=== PATIENT | male | born 1960 | race Caucasian/White ===

== ENCOUNTER 2024-06-17 18:45 | Inpatient (IN) | payer MEDICARE, SELFPAY ==
[2024-06-17] VITALS (23 sets, daily range): BP systolic 91–129; BP diastolic 65–83; BMI 15.1; BMI 14.7
[2024-06-17 15:20] LABS: ALT (SGPT) 38 U/L (0-50); AST (SGOT) 42 U/L (17-59); Albumin 2.5 g/dl (3.5-5.0); Alkaline Phosphatase 90 U/L (38-126); Blood Urea Nitrogen 9 mg/dl (9-20); Calcium 7.5 mg/dl (8.4-10.2); Carbon Dioxide 30 mmol/L (22-30); Chloride 87 mmol/L (98-107); Estimated Creatinine Clearance 93 ml/min; Glucose 99 mg/dl (70-99); Potassium 3.6 mmol/L (3.5-5.1); Sodium 121 mmol/L (135-145); Total Bilirubin 0.3 mg/dl (0.2-1.3); Total Protein 4.7 g/dl (6.3-8.2); eGFR > 60.00
--- NOTE | 2024-06-17 15:33 | ED.GENMED ---
History of Present Illness
General
Chief Complaint: Blood Pressure Problem
Time Seen by Provider: 06/17/24 15:09
History of Present Illness
History of Present Illness:
63-year-old male presents to the emergency department for evaluation of lightheadedness and low blood pressure with exertion. He comes from [facility]. He states he was admitted to [facility] at some point within the
past month or 2 for 'seizures' as well as for intestinal bleeding. Records that arrived from [facility] suggest the patient has a history of a stroke and is on dual antiplatelets at this time. He does report melanotic stool for an uncertain
timeframe. Denies any abdominal pain or chest pain at this time.
Review of Systems
Review of Systems
Allergies reviewed?: Yes
All Other Systems: ROS reviewed and negative except as documented in HPI and ROS
Phy Exam
Physical Exam
Physical Exam:
GEN: Thin and frail, chronically ill-appearing, generally pale
Eyes: PERRLA, EOMs intact, no scleral icterus
HENT: NCAT, oral mucosa dry
Lungs: CTAB, no wheezes, rales, rhonchi, normal chest wall excursion
Cardiac: RRR, no M/R/G, no peripheral edema. Radial pulses 2+ bilat
Abdomen: S, NT, ND, NABS, no masses or hepatosplenomegaly
Neuro: AO x 3, no focal deficits to BUE/BLE
MSK: No gross deformity or ecchymosis. No edema. No digital clubbing
Skin: No rashes, petechiae. Generally pale
Psych: Calm, cooperative, proper hygiene
Course
Orders/Labs/Results
Orders:
Orders
06/17/24 14:33
EKG [Electrocardiogram (*1)] Urgent
Reason for Study: Other
Other Reason for Exam: hypotension
EKG- Treatment ONCE
06/17/24 14:50
Alcohol Urgent
Comprehensive Metabolic Panel Urgent
06/17/24 15:24
Complete Blood Count/With Diff Urgent
06/17/24 15:32
Add On- LAB Urgent
Tests Added?: alcohol
Osmolality, Random Urine Urgent
Urine Sodium Urgent
06/17/24 16:36
Type And Crossmatch [Type+Screen] Stat
Serum Osmolality Urgent
06/17/24 16:41
Blood Bank Products [* Blood Bank Products] Urgent
Blood Bank Products: *Packed RBC Leuko(PRBC's)
Quantity: 2
Transfuse Today: Yes
Reason: Bleeding
Pantoprazole [Protonix IV] 40 mg IV NOW STA
06/17/24 17:16
ABO2 Routine
BBK Wristband Number:
Associate notified that ABO2 has been ordered: [id number]
Date: 06/17/24
Time: 16:48
Chief Estimator ID: [id number]
06/17/24 17:49
Pantoprazole [Protonix IV] 40 mg IV NOW STA
06/17/24 17:54
0.9% Sodium Chloride [Nss (Preservative Free)] 10 ml IV NOW STA
06/17/24 17:57
Admit/Transfer Patient As Directed
Co-Sign Provider:
Level of Care: Inpatient admission
Assign to:: IMU- Intermediate Care
Physician / Group: sam
Diagnosis: GI blled
Reason for Hospitalization: Gi bleed
Expected length of stay greater than two midnights?: Yes
ELOS- Estimated Length of Stay in days: 3
I certify the patient meets the requirements for IP care: Yes
PRN Pain Medication Management As Directed
May give lesser potent ordered pain med per pt: Yes
preference::
Protocol:: Medication orders for pain may be administered in a
manner that supports deferring to patient preference
when the pt is:
- Requesting an ordered lesser potent pain medication.
Least to most potent pain medications are defined
as: acetaminophen < NSAID < tramadol < opioids
(morphine, oxycodone, hydromorphone).
- Requesting a lesser dose of the same medication IF
ORDERED.
- Requesting a less intrusive route of administration
if both routes are prescribed by the provider (PO <
IV).
06/17/24 17:58
Code Status As Directed
Resuscitation Status: Full Code
06/17/24 18:00
0.9% Sodium Chloride 1000 ml [Nss] 1,000 ml IV 60 mls/hr
Pantoprazole 80 mg/100 ml Nss [Protonix] 80 mg in 100 ml IV Q10H
06/17/24 22:00
Sodium Q4H
06/18/24 02:00
Sodium Q4H
06/18/24 06:00
Sodium Q4H
06/18/24 10:00
Sodium Q4H
06/18/24 14:00
Sodium Q4H
06/18/24 18:00
Sodium Q4H
Abnormal Lab Results
06/17/24 06/17/24 06/17/24
14:50 15:24 16:36
RBC 1.34 L 10^6/uL
(4.70-6.10)
Hgb 4.6 L* g/dL
(13.0-18.0)
Hct 13.2 L* %
(39.0-52.0)
MCV 98.5 H fL
(80.0-94.0)
MCH 34.3 H pg
(27.0-31.0)
RDW 17.3 H %
(11.5-14.5)
Plt Count 416 H 10^3/uL
(130-400)
Absolute Neuts (auto) 7.1 H 10^3/uL
(1.4-6.5)
Absolute Lymphs (auto) 1.1 L 10^3/uL
(1.2-3.4)
Neutrophils % 79.9 H %
(42.2-75.2)
Lymphocytes % 12.9 L %
(20.5-51.1)
Sodium 121 L mmol/L
(135-145)
Chloride 87 L mmol/L
(98-107)
Creatinine 0.6 L mg/dL
(0.7-1.3)
Serum Osmolality 258 L mOsm/kg
(275-300)
Calcium 7.5 L mg/dl
(8.4-10.2)
Total Protein 4.7 L g/dl
(6.3-8.2)
Albumin 2.5 L g/dl
(3.5-5.0)
Crossmatch IS Only See Detail
06/17/24 15:24
Vital Signs
Initial and Last Documented VS:
Initial Vital Signs
Temp Pulse Resp BP Pulse Ox
97.3 F 83 18 91/68 99
06/17/24 14:28 06/17/24 14:28 06/17/24 14:28 06/17/24 14:28 06/17/24 14:28
Last Documented Vital Signs
Temp Pulse Resp BP Pulse Ox
97.7 F 70 18 113/68 97
06/17/24 18:13 06/17/24 18:31 06/17/24 18:31 06/17/24 18:31 06/17/24 18:31
MDM/Problems Addressed
MDM/Problems Addressed:
Patient's GI bleed is most likely an upper GI bleed in the setting of dual antiplatelet use. For is unable to obtain records during ED evaluation from his recent admission to [facility]. He is clearly hypovolemic and thus we will start gentle IV
fluids and PRBC transfusion. Will admit to the hospitalist service for further workup and management
*Critical Care Note
Total Time (30-74mins, 75-104mins- exclusive of procedures): 40 minutes
comment:
Critical care time: 40 minutes
Critical care time was exclusive of: Separately billable procedures, treating other patients, and teaching time
Critical care was necessary to treat or prevent imminent or life-threatening deterioration of the following conditions: Acute blood loss anemia
Critical care time spent personally by me on the following activities:
[x] Review of old charts
[x] Obtaining history from patient or surrogate
[x] Ordering and review of the laboratory studies
[x] Ordering and review of radiographic studies
[x] Ordering and performing treatments and interventions
[x] Patient patient's response to treatment
[x] Development of treatment plan with patient or surrogate
ED Attending Note
-
Portions of this chart may have been created with voice recognition software.� Occasional wrong word or��sound alike� substitutions may have occurred due to the inherent limitations of voice recognition software.
Discharge Plan
Departure
Patient Disposition: Admit
Date of Disposition: 06/17/24
Time of Disposition: 17:28
Admit to: Med/Surg
Presentation/result/management discussed w/ accepting MD/DO: Hospitalist
Discharge Problem:
Acute upper gastrointestinal bleeding, Acute hyponatremia
Prescriptions:
No Action
atorvastatin 40 mg Tablet
40 mg PO HS
acetaminophen [Tylenol] 325 mg Tablet
650 mg PO Q4HPRN PRN (Reason: mild pain/fever)
ondansetron HCl [Zofran] 4 mg Tablet
4 mg PO Q8HPRN PRN (Reason: nausea)
thiamine HCl (vitamin B1) 100 mg Tablet
100 mg PO DAILY
clopidogrel 75 mg Tablet
75 mg PO DAILY
amlodipine 5 mg Tablet
5 mg PO DAILY
Rx Instructions:
hold if SBP<100
magnesium hydroxide [Milk of Magnesia] 400 mg/5 mL Suspension
30 ml PO [id number] PRN (Reason: no bm for 3 days)
bisacodyl [Dulcolax (bisacodyl)] 10 mg Suppository
10 mg HI DAILYPRN PRN (Reason: if mom ineffective after 24 hours)
oseltamivir [Tamiflu] 75 mg Capsule
75 mg PO HS
Patient Comments:
06/17/24: to take for 14 days, starting 06/14/24
Fleet Enema 19-7 gram/118 mL Enema
118 ml HI DAILYPRN PRN (Reason: if bisacodyl ineffective after 24 hours)
aspirin 81 mg Tablet,Chewable
81 mg PO DAILY
folic acid 1 mg Tablet
1 mg PO DAILY
lorazepam 1 mg Tablet
1 mg PO Q8HPRN PRN (Reason: seizures)
lacosamide 200 mg Tablet
200 mg PO BID
Referrals:
Cody Lopez MD [Family Provider] -
Interventions
Interventions:
*Risk Screen - Suicide Last Done: 06/17/24 14:28
*General Assessment Last Done: 06/17/24 14:28
*Neglect/Abuse Screening Last Done: 06/17/24 14:28
ED- Cardiac Assessment Last Done: 06/17/24 18:01
ED- Neurological Assessment Last Done: 06/17/24 18:01
ED- Pulmonary Assessment Last Done: 06/17/24 18:01
Discharge Date and Time
Print Language: SENEGALESE
[2024-06-17 15:54] LABS: Alcohol None Detected
[2024-06-17 16:28] LABS: % Basophils 0.1 % (0-2); % Immature Granulocytes 0.3 % (0-0.5); % Lymphocytes 12.9 % (20.5-51.1); % Monocytes 6.8 % (1.7-9.3); % Neutrophils 79.9 % (42.2-75.2); Absolute Lymphocytes 1.1 10^3/uL (1.2-3.4); Absolute Monocytes 0.6 10^3/uL (0.1-0.6); Absolute Neutrophils 7.1 10^3/uL (1.4-6.5); Hematocrit 13.2 % (39.0-52.0); Hemoglobin 4.6 g/dL (13.0-18.0); Mean Corp Hgb Conc. 34.8 g/dL (33.0-37.0); Mean Corpuscular Hgb 34.3 pg (27.0-31.0); Mean Corpuscular Volume 98.5 fL (80.0-94.0); Nucleated Red Blood Cells % 0.3 % (-); Platelet Count 416 10^3/uL (130-400); Red Blood Cell Count 1.34 10^6/uL (4.70-6.10); Red Cell Dist. Width 17.3 % (11.5-14.5); White Blood Cell Count 8.9 10^3/uL (4.8-10.8)
[2024-06-17] MEDS: PROTONIX IV 40 MG IV ×2 (16:47→18:27)
[2024-06-17 16:54] LABS: Osmolality Serum 258 mOsm/kg (275-300)
--- NOTE | 2024-06-17 17:33 | HPS.HSE ---
Family Physician
-
Family Physician: Cody Lopez
Chief Complaint
-
dizzy
nausea
dark diarrhea stool
History of Present Illness
63-year-old male with past medical history for heart failure, CVA, hypertension, hyperlipidemia, anxiety, COPD, GERD, presents to the emergency department for evaluation of lightheadedness and low blood pressure. Patient stated dizzy every time he
gets up. he comes from [facility]. He states he was admitted to [facility] for bleeding ulcer which was cauterized. Patient denied black/tarry diarrhea for past few days. He gets nauseous after each meal. Denied
any headache, blurry vision, numbness, tingling. Patient denied any fever, chills, chest pain, short of breath. Patient denied any abdominal pain. Denied dysuria hematuria.
Upon arrival his hemoglobin was in 4.6. 2 units of PRBCs ordered in the ER. Admitting for further management
Medical History
Past Medical History
Past Medical History: Reports Other
Additional Past Medical History:
Heart failure
CVA
Hypertension
Hyperlipidemia
Anxiety
COPD
GERD
Past Surgical History: Reports Other
Additional Past Surgical History:
Cardiac stent
Bleeding also cauterized
Social History
Tobacco: Smoker (4-5 ciggrettes daily)
Alcohol: Former
Drug: Former User (MJ use)
Family History
Family History: Not pertinent
Allergies / Home Medications
Allergies reflects when Allergies were last updated in [employer].
Home Medications with original date entered in [employer]
Allergy/Medication List:
Allergies
Allergy/AdvReac Type Severity Reaction Status Date / Time
No Known Allergies Allergy Verified 06/17/24 15:08
Home Medications
acetaminophen 325 mg tablet (Tylenol) 650 mg PO Q4HPRN PRN mild pain/fever 06/17/24
amlodipine 5 mg tablet 5 mg PO DAILY 06/17/24
aspirin 81 mg chewable tablet 81 mg PO DAILY 06/17/24
atorvastatin 40 mg tablet 40 mg PO HS 06/17/24
bisacodyl 10 mg rectal suppository (Dulcolax (bisacodyl)) 10 mg ME DAILYPRN PRN if mom ineffective after 24 hours 06/17/24
clopidogrel 75 mg tablet 75 mg PO DAILY 06/17/24
folic acid 1 mg tablet 1 mg PO DAILY 06/17/24
lacosamide 200 mg tablet 200 mg PO BID 06/17/24
lorazepam 1 mg tablet 1 mg PO Q8HPRN PRN seizures 06/17/24
magnesium hydroxide 400 mg/5 mL oral suspension (Milk of Magnesia) 30 ml PO [id number] PRN no bm for 3 days 06/17/24
ondansetron HCl 4 mg tablet 4 mg PO Q8HPRN PRN nausea 06/17/24
oseltamivir 75 mg capsule (Tamiflu) 75 mg PO HS 06/17/24
sodium phosphates 19 gram-7 gram/118 mL enema (Fleet Enema) 118 ml ME DAILYPRN PRN if bisacodyl ineffective after 24 hours 06/17/24
thiamine HCl (vitamin B1) 100 mg tablet 100 mg PO DAILY 06/17/24
Review of Systems
-
Constitutional: Reports No Symptoms
EENT: Reports No Symptoms
Respiratory: Reports No Symptoms
Cardiac: Reports No Symptoms
Abdomen/GI: Reports Nausea, Diarrhea and Black Stools
: Reports No Symptoms
Musculoskeletal: Reports No Symptoms
Skin: Reports No Symptoms
Neurological: Reports No Symptoms
Endocrine: Reports No Symptoms
Hematologic/Lymphatic: Reports No Symptoms
Psych: Reports No Symptoms
Physical Exam
Vital Signs
Vital Signs
Temp Pulse Resp BP Pulse Ox
97.4 F 68 16 117/75 98
06/17/24 15:08 06/17/24 17:30 06/17/24 17:30 06/17/24 17:30 06/17/24 17:32
Physical Exam
General: Well Developed, Well Nourished and No Apparent Distress
HEENT: NormoCephalic, Moist mucous membranes and Atraumatic
Respiratory: Clear
Cardiac: S1/S2 and Regular Rhythm; No Murmur or Rub
GI: Soft, Non Tender, Non Distended and Normal Bowel Sounds; No Organomegaly
Rectal: Deferred by Provider
Musculoskeletal: No Clubbing, No Cyanosis and No Edema
Skin: No Rash
Neuro: AO x 3 and Nonfocal/grossly intact
Psych: Calm
Laboratory Results
-
06/17/24 15:24
06/17/24 14:50
Laboratory Results
Total Bilirubin 0.3 mg/dl (0.2-1.3) 06/17/24 14:50
AST 42 U/L (17-59) 06/17/24 14:50
ALT 38 U/L (0-50) 06/17/24 14:50
Alkaline Phosphatase 90 U/L (38-126) 06/17/24 14:50
Data Reviewed
-
Lab Data: Labs Reviewed by me
Impression/Plan
-
# Acute blood loss anemia likely from upper GI bleed
-Hemoglobin 4.6
-Patient is ordered 2 units of blood
-IV PPI
-Trend hemoglobin
-Keep patient clears
-GI consult
# Hyponatremia likely hypovolemic
-Sodium 121
-Hydrated with fluids
-Obtain urine sodium, osmolality and serum osmolality
-BMP every 4 hours
# Essential hypertension
Norvasc continued with hold parameters
#Hyperlipidemia
-Statin continued
# History of CVA with no residual
-Hold Plavix and aspirin
# History of CAD with cardiac stents
# History of seizure
Lacosamide continued
#DVT prophylaxis
-scd
#CODE status
-full code
--- NOTE | 2024-06-17 17:40 | W.PN.UPDATE ---
Update Note
Progress Note Update
This is an addendum to H&P written by COTTON BREEDER Diane Navarro
I saw and examined the patient.
The COTTON BREEDER's note was reviewed and I agree with the note.
Comment:
Mr. Tay Zamudio is a 63 yo man with hx CVA on Asa/Plavix, recent admission to [place] for seizures and GIB (per patient, requested records) [facility] with lightheadedness and low blood pressure with exertion.
Triage VS: T 97.3, P 83, RR 18, BP 91/68, SpO2 99%
On exam patient is pale appearing, in no acute distress, conversant, poor nutrition, abdomen soft and non-tender, chest clear, no LE swelling
LABS: WBC 8.9, Hg 4.6, PLT 416, Na 121, K+ 3.6, Cl 87, Cr 0.6, Serum Osmolality 258, T. Bili 0.3, AST 42, ALT 38, Alk Phos 90
EKG: NSR @ 75
Melena
Acute Blood Loss Anemia
-need to obtain outpatient records from [place] - requested by the ER
-receiving 2 units PRBC here, trend Hg and transfuse to keep Hg > 7
-hold HUMAN RESOURCES TALENT MANAGER Asa/Plavix given life threatening anemia
-IV Protonix gtt
-trend Hg
-GI consult
-clear liquid diet
Hyponatremia
-in setting of melena and dehydration
-F/U urine studies
-NS @ 70
-trend Na q 4 hours. Goal Na is 129-131 tomorrow evening
-Nephrology consult
CAD with Hx PCI
-hold aspirin and Plavix in setting of life threatening anemia. patient reports that his PCI was over one year ago - will look at outpatient records to confirm
Recent CVA
-hold aspirin and Plavix as above
-HUMAN RESOURCES TALENT MANAGER statin
Seizures
-HUMAN RESOURCES TALENT MANAGER Lacosamide, Ativan PRN
Essential HTN
-patient was hypotensive on arrival
-hold HUMAN RESOURCES TALENT MANAGER Amlodipine
Remainder of plan per COTTON BREEDER note
Time on patient care spent 76 minutes
[2024-06-17] MEDS: NSS 1000 IV (18:10)
[2024-06-17] MEDS: NSS (PRESERVATIVE FREE) 10 ML IV (18:27)
[2024-06-17] MEDS: PROTONIX 100 IV (18:43)
--- NOTE | 2024-06-17 19:59 | PTCARENOTE ---
Received pt from ED via stretcher. PRBCs 1 unit infusing in right upper arm. Completed at 19:50 with no reactions. AAOx3. VSS at this time. Pt remains on bed rest. Call floyd in reach.
[2024-06-17] MEDS: VIMPAT 200 MG PO (20:49)
[2024-06-17] MEDS: LIPITOR 40 MG PO (20:49)
[2024-06-17 23:07] LABS: Sodium 120 mmol/L (135-145)
[2024-06-17 23:09] LABS: Osmolality Urine 523 mOsm/kg (300-900)
[2024-06-17 23:24] LABS: Urine Sodium 49 mmol/L (30-90)
[2024-06-17] MEDS: SODIUM CHLORIDE 3% 250 IV (23:25)
[2024-06-18] VITALS (12 sets, daily range): BP systolic 100–137; BP diastolic 64–90; BMI 14.7
[2024-06-18 01:16] LABS: Hematocrit 22.2 % (39.0-52.0); Hemoglobin 7.5 g/dL (13.0-18.0)
[2024-06-18 03:15] LABS: Sodium 124 mmol/L (135-145)
[2024-06-18] MEDS: PROTONIX 100 IV (04:30)
[2024-06-18 06:43] LABS: Hematocrit 22.3 % (39.0-52.0); Hemoglobin 7.4 g/dL (13.0-18.0); Mean Corp Hgb Conc. 33.2 g/dL (33.0-37.0); Mean Corpuscular Hgb 31.8 pg (27.0-31.0); Mean Corpuscular Volume 95.7 fL (80.0-94.0); Mean Platelet Volume 9.3 fL (7.4-10.4); Platelet Count 313 10^3/uL (130-400); Red Blood Cell Count 2.33 10^6/uL (4.70-6.10); Red Cell Dist. Width 16.7 % (11.5-14.5); White Blood Cell Count 7.9 10^3/uL (4.8-10.8)
[2024-06-18 06:52] LABS: Blood Urea Nitrogen 11 mg/dl (9-20); Calcium 7.5 mg/dl (8.4-10.2); Carbon Dioxide 32 mmol/L (22-30); Chloride 92 mmol/L (98-107); Estimated Creatinine Clearance 90 ml/min; Glucose 85 mg/dl (70-99); Potassium 3.5 mmol/L (3.5-5.1); Sodium 125 mmol/L (135-145); eGFR > 60.00
--- NOTE | 2024-06-18 07:21 | CON.GI ---
Addendum entered and electronically signed by Kathryn Zhang MD 06/18/24 15:46:
I saw and examined the patient.
The ROOFER APPRENTICE or PA's note was reviewed and I agree with the note.
Comment: 63-year-old male with history of CVA on aspirin/ Plavix, history of GI bleed unclear etiology (?ulcer) at [facility] several months ago currently off PPI, alcohol abuse, seizure disorder presenting from rehab with hypotension and
lightheadedness, in the ER he was noted to have hemoglobin of 4.6 with iron deficiency indices, heme positive stool and GI consult was called in. He was also noted to be hyponatremic.
Patient denies any abdominal pain but episodes of nausea with vomiting, ? Blackish loose stool in the last week or so. Denies any trouble swallowing. Denies any NSAID use but does report weight loss but cannot quantify.
Reports history of daily alcohol use, abdominal ultrasound unremarkable without any evidence of fatty liver. Denies previous colonoscopy, family history of colon cancer in brother.
-Iron deficiency anemia and heme positive stool, received 2 units of packed red blood cell transfusion and hemoglobin currently at 7.4.
Rule out ulcer disease, esophagitis, AVMs, colon polyps versus other
No further bleeding since admission. Currently tolerating clear liquid diet.
Continue Protonix 40 mg IV twice daily.
Await records from [facility]
Plavix on hold.
Will need upper endoscopy after Plavix washout,06/21/24 and if negative, colonoscopy.
-Hypoalbuminemia noted without any concern for cirrhosis on ultrasound
Will follow
Addendum entered and electronically signed by BLUE Sabillon 06/18/24 09:32:
cont to correct Na per medical team down to 120 now 125 today
Original Note:
Consultation
-
Date/Time Consultation Requested: 06/17/24 1900
Date/Time Consultation Performed: 06/18/24 0900
Requesting Provider: BLUE Ruiz
Performing Provider: BLUE Hunter, Kathryn Zhang MD
Reason for Consultation: GI bleed
Medical History
Chief Complaint / HPI
History of Present Illness:
Pt is a 63yo with hx CVA on ASA and plavix, CAD with prior stent, CHF, GERD, COPD, ETOH abuse, CVA, seizure disorder, HTN, hyperlipidemia, anxiety with admission with lightheadedness and hypotension. He reported recent ulcer disease with
cauterization several months ago. Pt was off PPI prior to admission. On arrival hbg was 4.6, Na 121 with heme + stool in ER. No prior colonoscopy and family hx brother with colon CA. Pt currently admits to nausea and vomiting occasional black
material and diarrhea. He was unsure about stool color as did not look at stools. He otherwise denies dysphagia, GERD and constipation. Pt also admits to some wt loss over last few weeks.
Past Medical History
Past Medical History: CHF, COPD, CVA, GERD, HTN, Hypercholesterolemia, Seizures, Psychiatric (anxiety ) and Other (recent ulcer disease with cauterization, ETOH abuse )
Past Surgical History: Cardiac (stent )
Social History
Tobacco: Smoker
Alcohol: Daily (prior to SNF admission 2-3 drinks )
Drug: Marijuana (occasional )
Living: Assisted Living
Family History
Family History: Other (brother with colon CA)
Allergies / Home Medications
Allergy/AdvReac Type Severity Reaction Status Date / Time
No Known Allergies Allergy Verified 06/17/24 15:08
�Medication �Instructions �Recorded
acetaminophen 325 mg tablet 650 mg PO Q4HPRN PRN mild 06/17/24
(Tylenol) pain/fever
amlodipine 5 mg tablet 5 mg PO DAILY 06/17/24
aspirin 81 mg chewable tablet 81 mg PO DAILY 06/17/24
atorvastatin 40 mg tablet 40 mg PO HS 06/17/24
bisacodyl 10 mg rectal suppository 10 mg PA DAILYPRN PRN if mom 06/17/24
(Dulcolax (bisacodyl)) ineffective after 24 hours
clopidogrel 75 mg tablet 75 mg PO DAILY 06/17/24
folic acid 1 mg tablet 1 mg PO DAILY 06/17/24
lacosamide 200 mg tablet 200 mg PO BID 06/17/24
lorazepam 1 mg tablet 1 mg PO Q8HPRN PRN seizures 06/17/24
magnesium hydroxide 400 mg/5 mL 30 ml PO [id number] PRN no bm for 3 06/17/24
oral suspension (Milk of Magnesia) days
ondansetron HCl 4 mg tablet 4 mg PO Q8HPRN PRN nausea 06/17/24
oseltamivir 75 mg capsule (Tamiflu) 75 mg PO HS 06/17/24
sodium phosphates 19 gram-7 118 ml PA DAILYPRN PRN if 06/17/24
gram/118 mL enema (Fleet Enema) bisacodyl ineffective after 24
hours
thiamine HCl (vitamin B1) 100 mg 100 mg PO DAILY 06/17/24
tablet
Review of Systems
-
History Source: Patient
Constitutional: Reports Weight Loss and Chills
EENT: Reports No Symptoms
Respiratory: Reports No Symptoms
Cardiac: Reports No Symptoms
Abdomen/GI: Reports Nausea, Vomiting (dark emesis ) and Diarrhea
: Reports No Symptoms
Musculoskeletal: Reports No Symptoms
Skin: Reports No Symptoms
Neurological: Reports Dizzy and Weakness
Endocrine: Reports No Symptoms
Hematologic/Lymphatic: Reports Bleeding
Vital Signs
Temp Pulse Resp BP Pulse Ox
97.6 F 75 19 105/74 95
06/18/24 02:46 06/18/24 06:10 06/18/24 06:10 06/18/24 06:10 06/18/24 06:10
Physical Exam
Exam
General: Well Developed, Well Nourished and No Apparent Distress
HEENT: Normocephalic and Anicteric
Respiratory: Clear
Cardiac: Regular Rhythm
GI: Soft, Non Tender and Non Distended
Rectal: Hem Positive (per ER)
Musculoskeletal: No Clubbing
Skin: Warm and Dry
Neuro: Awake, Alert and AO x 3
Psych: Calm
Results
WBC 7.9 10^3/uL (4.8-10.8) 06/18/24 06:15
Hgb 7.4 g/dL (13.0-18.0) L 06/18/24 06:15
Hct 22.3 % (39.0-52.0) L 06/18/24 06:15
MCV 95.7 fL (80.0-94.0) H 06/18/24 06:15
Plt Count 313 10^3/uL (130-400) D 06/18/24 06:15
Absolute Neuts (auto) 7.1 10^3/uL (1.4-6.5) H 06/17/24 15:24
Sodium 125 mmol/L (135-145) L 06/18/24 06:15
Potassium 3.5 mmol/L (3.5-5.1) 06/18/24 06:15
Chloride 92 mmol/L (98-107) L 06/18/24 06:15
Carbon Dioxide 32 mmol/L (22-30) H 06/18/24 06:15
BUN 11 mg/dl (9-20) 06/18/24 06:15
Creatinine 0.6 mg/dL (0.7-1.3) L 06/18/24 06:15
Calcium 7.5 mg/dl (8.4-10.2) L 06/18/24 06:15
Total Bilirubin 0.3 mg/dl (0.2-1.3) 06/17/24 14:50
AST 42 U/L (17-59) 06/17/24 14:50
ALT 38 U/L (0-50) 06/17/24 14:50
Alkaline Phosphatase 90 U/L (38-126) 06/17/24 14:50
Diagnostic Image Results:
Prior GI Procedures:
EGD: recent [facility] with cauterization of ulcer
Colonoscopy: none
Assessment / Plan
-
Pt is a 63yo with hx CVA on ASA and plavix, CAD with prior stent, CHF, GERD, COPD, HTN, hyperlipidemia,ETOH abuse, CVA, seizure disorder, anxiety with admission with lightheadedness and hypotension. He reported recent ulcer disease with
cauterization. On arrival hbg was 4.6,with normal BUN 9, Na 121. Stool noted heme + in ER.
-anemia
-intermittent vomiting dark emesis
-recent PUD disease with treatment at [facility]
-CAD/stent on ASA and Plavix prior to admission
-ETOH abuse on thiamine and folate prior to admission
-hyponatremia
-hypoalbumenia
other med problems:
-CVA
-seizure disorder
-CHF
-GERD
-COPD
-hyperlipidemia
-anxiety
-brother with hx colon CA
PLAN:
etiology of anemia related to continued bleeding with hx of ulcer disease with ASA and Plavix use vs ectasia, portal gastropathy, esophagititis vs other
per home med list pt was not on PPI therapy
agree with transfusion hbg up to 7.4 today
PPI gtt will transition to BID with no stool overnight
await records of prior EGD -- review with staff to try to get today
cont Plavix hold-- if needed can cont ASA
trend hbg and stool record
remains on thiamine and folate
will try to add iron studies/ b12/folate to ER labs if able to see if benefit from IV iron
check US abdomen to eval for underlying liver disease with ETOH use and hypoalbuminemia
t/c eventual EGD then colon with no prior screening and family hx colon CA - brother -- will review timing with Dr. Zhang
I left message for daughter to review
-
-
-
Thank you for consultation and allowing me to participate in the patient's care. Please call the transportation consultant GI physician during the after hours with any questions or concerns.
--- NOTE | 2024-06-18 07:58 | W.PN.HOSP.TC ---
Today's Communication/Plan
-
see plan
Assessment / Plan
Assessment / Plan
Mr. Tay Zamudio is a 63 yo man with hx CVA on Asa/Plavix, recent admission to [facility] for seizures and GIB (per patient, requested records) [facility] and low blood pressure with exertion.
Melena
Acute Blood Loss Anemia
-need to obtain outpatient records from [facility] - requested by the ER
-s/p 2 units with appropriate rise
-hold BUILDING CONSTRUCTION SUPERVISOR Asa/Plavix given life threatening anemia - can likely resume aspirin in the next 1-2 days after discuss with GI
-IV Protonix gtt
-trend Hg
-GI consult
-clear liquid diet
Hyponatremia
-in setting of melena and dehydration, may be component of SIADH based on urine studies
-required hypertonic saline overnight as Na decreased to 120 post blood and IVF
-Nephrology consult appreciated, follow up further recs
CAD with Hx PCI
-hold aspirin and Plavix in setting of life threatening anemia. patient reports that his PCI was over one year ago - will look at outpatient records to confirm
Recent CVA
-hold aspirin and Plavix as above
-BUILDING CONSTRUCTION SUPERVISOR statin
Seizures
-BUILDING CONSTRUCTION SUPERVISOR Lacosamide
Essential HTN
-patient was hypotensive on arrival
-hold BUILDING CONSTRUCTION SUPERVISOR Amlodipine
DVT PPx SCD
FULL CODE
51 minutes spent on patient care
Anticipated Discharge: > 48 hours
Subjective/Interval History
-
Date of Service: June 18, 2024
no bowel movements overnight
resting comfortably, denies pain
no chest pain or shortness of breath
Objective Data
-
Labs:
Laboratory Results
06/17/24 06/18/24 06/18/24
22:47 00:30 00:48
WBC
Hgb 7.5 L D
Hct 22.2 L
Plt Count
Sodium 120 L Cancelled
Potassium
Chloride
Carbon Dioxide
BUN
Creatinine
Glucose
Calcium
06/18/24 06/18/24 06/18/24
02:43 06:00 06:15
WBC 7.9
Hgb Cancelled 7.4 L
Hct Cancelled 22.3 L
Plt Count 313 D
Sodium 124 L 125 L
Potassium 3.5
Chloride 92 L
Carbon Dioxide 32 H
BUN 11
Creatinine 0.6 L
Glucose 85
Calcium 7.5 L
06/18/24 06/18/24 06/18/24
10:00 12:00 14:00
WBC
Hgb Pending
Hct Pending
Plt Count
Sodium Pending Pending
Potassium
Chloride
Carbon Dioxide
BUN
Creatinine
Glucose
Calcium
06/18/24
18:00
WBC
Hgb
Hct
Plt Count
Sodium Pending
Potassium
Chloride
Carbon Dioxide
BUN
Creatinine
Glucose
Calcium
Vital Signs:
Vital Signs
Temp Pulse Resp BP Pulse Ox
97.6 F 75 19 105/74 95
06/18/24 02:46 06/18/24 06:10 06/18/24 06:10 06/18/24 06:10 06/18/24 06:10
I&O
06/17/24 06/18/24 06/19/24
06:59 06:59 06:59
Intake Total 500 / 500
Output Total 125 / 125
Balance 375 / 375
Review of Systems
-
History Source: Patient
All other systems: Reviewed and negative
Physical Exam
-
General: No Apparent Distress and Comfortable
HEENT: PERRLA
Respiratory: Clear to Auscultation; Negative Wheezes
Cardiac: Regular Rhythm and S1/S2
GI: Soft and Nontender
Musculoskeletal: No Edema
Skin: Warm and Dry; Negative Rash
Neuro: AO x 3
Psych: Calm
Data Reviewed
-
Diagnostic Radiology: Report Reviewed by me
Labs: Labs Reviewed by me
[2024-06-18] MEDS: FOLVITE 1 MG PO (09:26)
[2024-06-18] MEDS: VIMPAT 200 MG PO ×2 (09:26→20:19)
[2024-06-18] MEDS: VITAMIN B1 100 MG PO (09:26)
[2024-06-18 10:42] LABS: Sodium 127 mmol/L (135-145)
[2024-06-18 10:59] LABS: Iron 32 ug/dl (49-181)
[2024-06-18 11:08] LABS: Percent Saturation 12 % (20-50); Total Iron Binding Capacity 262 ug/dl (261-462)
--- NOTE | 2024-06-18 12:19 | W.CON.NEPH ---
Consultation
-
Date/Time Consultation Requested: 06/17/24 191
Date/Time Consultation Performed: 06/18/24 1120
Requesting Provider: Margaret Bryan
Performing Provider: Rosibel Bonds
Reason for Consultation: hyponatremia
Medical History
-
Chief Complaint: dizzy, radha
History of Present Illness:
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 point
for evaluation of lightheadedness and low blood pressure on 06/17. He reportedly was admitted to [facility] for bleeding ulcer which was cauterized months ago. Patient did not pay attention to stools lately. His hb on admit was
at 4.6, sodium 121, SBP in 90s. He noted to have radha in ER. Has prior h/o hyponatremia is not clear. He received 2units of PRBC last night and also 3%saline. His hb better at 7.4 and sodium upto 127. 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
abd pian. No CP or sob. No fever. No dysuria.. Nephrology consulted for hyponatremia management.
Past Medical History
Heart failure
CVA
Hypertension
Hyperlipidemia
Anxiety
COPD
GERD
SZDO
Past Surgical History: Other (Cardiac stent GIBleeding also cauterized)
Social History
Tobacco: Smoker (4-5 daily)
Alcohol: Former (dailyETOH until recent rehab stay )
Drug: Marijuana (former)
Living: Assisted Living
Family History
Family History: Not Pertinent
Allergies / Home Medications
Allergy/AdvReac Type Severity Reaction Status Date / Time
No Known Allergies Allergy Verified 06/17/24 15:08
�Medication �Instructions �Recorded �Confirmed �Type
acetaminophen 325 mg tablet 650 mg PO Q4HPRN PRN mild 06/17/24 06/17/24 History
(Tylenol) pain/fever
amlodipine 5 mg tablet 5 mg PO DAILY Blood Pressure 06/17/24 06/17/24 History
aspirin 81 mg chewable tablet 81 mg PO DAILY Blood Clot 06/17/24 06/17/24 History
Prevention/Tx
atorvastatin 40 mg tablet 40 mg PO HS High Cholesterol 06/17/24 06/17/24 History
bisacodyl 10 mg rectal suppository 10 mg VA DAILYPRN PRN if mom 06/17/24 06/17/24 History
(Dulcolax (bisacodyl)) ineffective after 24 hours
clopidogrel 75 mg tablet 75 mg PO DAILY Blood Clot 06/17/24 06/17/24 History
Prevention/Tx
folic acid 1 mg tablet 1 mg PO DAILY Supplement 06/17/24 06/17/24 History
lacosamide 200 mg tablet 200 mg PO BID Seizures 06/17/24 06/17/24 History
lorazepam 1 mg tablet 1 mg PO Q8HPRN PRN seizures 06/17/24 06/17/24 History
magnesium hydroxide 400 mg/5 mL 30 ml PO [id number] PRN no bm for 3 06/17/24 06/17/24 History
oral suspension (Milk of Magnesia) days
ondansetron HCl 4 mg tablet 4 mg PO Q8HPRN PRN nausea 06/17/24 06/17/24 History
oseltamivir 75 mg capsule (Tamiflu) 75 mg PO HS Infection 06/17/24 06/17/24 History
sodium phosphates 19 gram-7 118 ml VA DAILYPRN PRN if 06/17/24 06/17/24 History
gram/118 mL enema (Fleet Enema) bisacodyl ineffective after 24
hours
thiamine HCl (vitamin B1) 100 mg 100 mg PO DAILY Supplement 06/17/24 06/17/24 History
tablet
Review of Systems
-
All complete 12 point ROS have been inquired and found negative other than stated in HPI
Physical Exam
Vital Signs
Vital Signs
Temp Pulse Resp BP Pulse Ox
98.0 F 56 15 101/73 98
06/18/24 07:05 06/18/24 08:00 06/18/24 08:00 06/18/24 08:00 06/18/24 08:00
Lab Results
WBC 7.9 10^3/uL (4.8-10.8) 06/18/24 06:15
RBC 2.33 10^6/uL (4.70-6.10) L 06/18/24 06:15
Plt Count 313 10^3/uL (130-400) D 06/18/24 06:15
Potassium 3.5 mmol/L (3.5-5.1) 06/18/24 06:15
Chloride 92 mmol/L (98-107) L 06/18/24 06:15
Carbon Dioxide 32 mmol/L (22-30) H 06/18/24 06:15
BUN 11 mg/dl (9-20) 06/18/24 06:15
Creatinine 0.6 mg/dL (0.7-1.3) L 06/18/24 06:15
eGFR > 60.00 06/18/24 06:15
Glucose 85 mg/dl (70-99) 06/18/24 06:15
Calcium 7.5 mg/dl (8.4-10.2) L 06/18/24 06:15
Albumin 2.5 g/dl (3.5-5.0) L 06/17/24 14:50
Abnormal Lab Results
06/17/24 06/17/24 06/17/24
14:50 15:24 16:36
RBC 1.34 L
Hgb 4.6 L*
Hct 13.2 L*
MCV 98.5 H
MCH 34.3 H
RDW 17.3 H
Plt Count 416 H
Absolute Neuts (auto) 7.1 H
Absolute Lymphs (auto) 1.1 L
Neutrophils % 79.9 H
Lymphocytes % 12.9 L
Sodium 121 L
Chloride 87 L
Carbon Dioxide
Creatinine 0.6 L
Serum Osmolality 258 L
Calcium 7.5 L
Iron 32 L
% Saturation 12 L
Total Protein 4.7 L
Albumin 2.5 L
Crossmatch IS Only See Detail
06/17/24 06/18/24 06/18/24
22:47 00:48 02:43
RBC
Hgb 7.5 L D
Hct 22.2 L
MCV
MCH
RDW
Plt Count
Absolute Neuts (auto)
Absolute Lymphs (auto)
Neutrophils %
Lymphocytes %
Sodium 120 L 124 L
Chloride
Carbon Dioxide
Creatinine
Serum Osmolality
Calcium
Iron
% Saturation
Total Protein
Albumin
Crossmatch IS Only
06/18/24 06/18/24
06:15 10:03
RBC 2.33 L
Hgb 7.4 L
Hct 22.3 L
MCV 95.7 H
MCH 31.8 H
RDW 16.7 H
Plt Count
Absolute Neuts (auto)
Absolute Lymphs (auto)
Neutrophils %
Lymphocytes %
Sodium 125 L 127 L
Chloride 92 L
Carbon Dioxide 32 H
Creatinine 0.6 L
Serum Osmolality
Calcium 7.5 L
Iron
% Saturation
Total Protein
Albumin
Crossmatch IS Only
Physical Exam
General: Awake, Alert, Oriented, AOx3, No Distress and Nontoxic
HEENT: EOMI, Anicteric, Facial Symmetry, Neck Supple and No JVD
Respiratory: Clear, Normal Excursion and Nonlabored Respirations
Cardiac: S1/S2 and Regular Rate/Rhythm
Breast: Deferred by me
Abdomen: Soft, Nontender and Nondistended
Musculoskeletal: No Cyanosis and Edema (trace)
Skin: No Rash
Neuro: Nonfocal/Grossly Intact
Psych: Mood/afflect pleasant and Appropriate
Data Reviewed
-
Labs: Labs Reviewed by me, Discussed with Nurse and Discussed with Patient
Assessment/Plan
-
IMP:
Melena
Acute Blood Loss Anemia
Hyponatremia
CAD with Hx PCI
Recent CVA
Seizures
Essential HTN
ETOH abuse
CHF?
GERD
COPD
hyperlipidemia
anxiety
Plan:
A/w dizziness, radha, blood loss anemia
HYpoantremia-no old labs to review, await records from [facility]
U osmo was high 523, U na 49-suggest high ADH activity with low Bps and severe anemia
sodium improved to 127 with 3% saline, recheck labs later today and if decreases likely resume HTS
maintain FR 48 ouces/day
check TSH and cortisol
Bp now improving, hold CCB
prn transfusion per primary, hb better -cont to trend q6h
GI follows, eventual EGD, US abd done today with h/o ETOH use
Fe def noted, likely start IV fe course
check U pCR for hypoalbuminemia
d/w pt and nursing
[2024-06-18 12:24] LABS: Folate 13.7 ng/ml (2.76-20); Vitamin B12 804 pg/ml (239-931)
--- NOTE | 2024-06-18 14:06 | W.PN.UPDATE ---
Update Note
Progress Note Update
Per daughter, patient's cardiac stent was placed July 2023. Given Hg stable today, I will resume aspirin
continue to hold Plavix
[2024-06-18 15:57] LABS: Cortisol, Random 17.2 ug/dl
--- NOTE | 2024-06-18 16:06 | CM ---
Addendum entered by Yoon Gomes RN 06/18/24 16:17:
Clarification from [facility]; the patient was not receiving PT.
Original Note:
Patient from [facility] with Hx CVA & GIB, s/p transfusions. Room air. Clear liquids. Receiving IV Protonix.
Spoke with [facility]; the patient resides there in LTC and is on an MA bed hold. Requested to know PLOF and if receiving PT/OT; response was patient requires supervision level of assistance.
Patient may benefit from PT/OT Evals.
Plan return to [facility] when medically ready.
[2024-06-18 16:07] LABS: Hemoglobin 7.5 g/dL (13.0-18.0)
[2024-06-18 16:14] LABS: Sodium 122 mmol/L (135-145)
[2024-06-18] MEDS: SODIUM CHLORIDE 3% 250 IV (17:11)
[2024-06-18] MEDS: LOW STRENGTH ASPIRIN 81 MG PO (17:11)
--- NOTE | 2024-06-18 17:55 | PTCARENOTE ---
Patient AAOX3. Left upper arm midline placed due to frequent lab draws and patient is a difficult stick. Patient receiving 2nd bag of 3% sodium chloride drip due to sodium level of 122. Clear liquid diet due to GI bleed. Patient tolerating diet.
As per nephrology fluid restriction 1440 mls a day. Q6 h&H, currently hemoglobin 7.5. VS stable. Patient using call floyd appropriately.
[2024-06-18] MEDS: LIPITOR 40 MG PO (20:19)
[2024-06-18] MEDS: PROTONIX IV 40 MG IV (20:19)
[2024-06-18] MEDS: NSS (PRESERVATIVE FREE) 10 ML IV (20:20)
[2024-06-18 20:50] LABS: Sodium 124 mmol/L (135-145)
--- NOTE | 2024-06-18 21:41 | PTCARENOTE ---
Dr. Alaniz made aware of sodium level of 124. No new orders. 3% sodium chloride infusing at this time.
[2024-06-18 22:15] LABS: Urine Protein < 5 mg/dl
[2024-06-19] VITALS (17 sets, daily range): BP systolic 97–138; BP diastolic 64–105; BMI 15.5
--- NOTE | 2024-06-19 02:17 | PTCARENOTE ---
Patient incontinent of loose/liquid brown/black stool, moderate amount. Voiding adequately, needs assistance with urinal. Stress incontinence present. Pt able to help turn self in bed, encouraged to reposition self frequently while in bed to prevent
skin breakdown. pt verbalized understanding.
Midline dressing intact, lumen patent. Call floyd within reach, pt calls appropriately.
[2024-06-19 04:50] LABS: Hematocrit 19.1 % (39.0-52.0); Hemoglobin 6.5 g/dL (13.0-18.0); Mean Corpuscular Hgb 32.8 pg (27.0-31.0); Mean Corpuscular Volume 96.5 fL (80.0-94.0); Mean Platelet Volume 9.8 fL (7.4-10.4); Platelet Count 339 10^3/uL (130-400); Red Blood Cell Count 1.98 10^6/uL (4.70-6.10); Red Cell Dist. Width 16.5 % (11.5-14.5); White Blood Cell Count 5.2 10^3/uL (4.8-10.8)
[2024-06-19 04:58] LABS: INR 1.27; PT 16.2 Sec (11.4-14.6)
[2024-06-19 05:08] LABS: Blood Urea Nitrogen 11 mg/dl (9-20); Calcium 7.3 mg/dl (8.4-10.2); Carbon Dioxide 31 mmol/L (22-30); Chloride 93 mmol/L (98-107); Estimated Creatinine Clearance 95 ml/min; Glucose 84 mg/dl (70-99); Potassium 3.1 mmol/L (3.5-5.1); Sodium 126 mmol/L (135-145); eGFR > 60.00
--- NOTE | 2024-06-19 06:34 | PTCARENOTE ---
Addendum entered by Cory Oakley RN 06/19/24 06:42:
Patient offers no complaints; no s/s of reaction. Coffee and jello ordered for breakfast per pt request. Call floyd left within reach.
Original Note:
Critical H/H this morning; result reported to BLEU Ojeda. Order for STAT 1 unit PRBC received. PRBC obtained from blood bank and started, pt educated on s/s to monitor for possible reaction.
--- NOTE | 2024-06-19 08:07 | W.PN.HOSP.TC ---
Today's Communication/Plan
-
see plan
Assessment / Plan
Assessment / Plan
Mr. Tay Zamudio is a 63 yo man with hx CVA on Asa/Plavix, recent admission to [place] for seizures and GIB (per patient, requested records) [facility] and low blood pressure with exertion.
Melena
Acute Blood Loss Anemia
-need to obtain outpatient records from [place] - requested by the ER
-s/p 2 units with appropriate rise; additional unit this AM (06/19)
-hold CLINICIAN ONCOLOGY Asa/Plavix given life threatening anemia -resumed aspirin on 06/18
-IV Protonix
-trend Hg
-GI consult appreciated, eventual EGD and possible [place]
-clear liquid diet
Hyponatremia
-in setting of melena and dehydration, may be component of SIADH based on urine studies
-required hypertonic saline overnight as Na decreased to 120 post blood and IVF; and repeat hypertonic saline on 06/18
-Nephrology consult appreciated, follow up further recs
CAD with Hx PCI
-PCI was July 2023 - confirmed with daughter
-aspirin resumed
-hold Plavix
Recent CVA
-aspirin, hold Plavix
-CLINICIAN ONCOLOGY statin
Seizures
-CLINICIAN ONCOLOGY Lacosamide
Essential HTN
-patient was hypotensive on arrival
-hold CLINICIAN ONCOLOGY Amlodipine
DVT PPx SCD
FULL CODE
51 minutes spent on patient care
Anticipated Discharge: > 48 hours
Subjective/Interval History
-
Date of Service: June 19, 2024
no new complaints
2 BM this morning, cannot say if black or bloody
no abdominal pain
Objective Data
-
Labs:
Laboratory Results
06/18/24 06/19/24 06/19/24
20:14 04:10 04:10
WBC 5.2
Hgb 6.5 L*
Hct 19.1 L*
Plt Count 339
PT 16.2 H
INR 1.27
Sodium 124 L 126 L Cancelled
Potassium 3.1 L
Chloride 93 L
Carbon Dioxide 31 H
BUN 11
Creatinine 0.6 L
Glucose 84
Calcium 7.3 L
06/19/24 06/19/24 06/19/24
10:00 14:00 18:00
WBC
Hgb Pending
Hct
Plt Count
PT
INR
Sodium Pending Pending Pending
Potassium
Chloride
Carbon Dioxide
BUN
Creatinine
Glucose
Calcium
Vital Signs:
Vital Signs
Temp Pulse Resp BP Pulse Ox
97.7 F 59 12 126/74 97
06/19/24 06:40 06/19/24 06:40 06/19/24 06:40 06/19/24 06:40 06/19/24 06:40
I&O
06/18/24 06/19/24 06/20/24
06:59 06:59 06:59
Intake Total 500 / 500 1255 / 1255
Output Total 125 / 125 670 / 670
Balance 375 / 375 585 / 585
Review of Systems
-
History Source: Patient
All other systems: Reviewed and negative
Physical Exam
-
General: No Apparent Distress and Comfortable
HEENT: PERRLA
Respiratory: Clear to Auscultation; Negative Wheezes
Cardiac: Regular Rhythm and S1/S2
GI: Soft and Nontender
Musculoskeletal: No Edema
Skin: Warm and Dry; Negative Rash
Neuro: AO x 3
Psych: Calm
Data Reviewed
-
Diagnostic Radiology: Report Reviewed by me
Labs: Labs Reviewed by me
[2024-06-19] MEDS: NSS (PRESERVATIVE FREE) 10 ML IV ×2 (08:54→19:53)
[2024-06-19] MEDS: PROTONIX IV 40 MG IV ×2 (08:55→19:53)
[2024-06-19] MEDS: VIMPAT 200 MG PO ×2 (08:56→19:53)
[2024-06-19] MEDS: VITAMIN B1 100 MG PO (08:56)
[2024-06-19] MEDS: FOLVITE 1 MG PO (08:57)
[2024-06-19] MEDS: LOW STRENGTH ASPIRIN PO (08:57)
--- NOTE | 2024-06-19 10:20 | PTCARENOTE ---
Late entry: Received this am BPs 70s-100s/40-60s- AAO x3, pale denies dizziness. NGT is clamped, denied nausea. Taking sips of clear liqs. AM labs noted d/w Dr. Lockhart- had 1 more liquid bloody stool- taken for stat CT and transferred to ICU [id number].
--- NOTE | 2024-06-19 11:28 | W.PN.NEPH.PH ---
Today's Communication / Plan
-
trend sodium, prn HTS
replace k
start salt tab
Assessment/Plan
-
IMP:
Melena
Acute Blood Loss Anemia
Hyponatremia
CAD with Hx PCI
Recent CVA
Seizures
Essential HTN
ETOH abuse
CHF?
GERD
COPD
hyperlipidemia
anxiety
Plan:
A/w dizziness, radha, blood loss anemia
HYpoantremia-no old labs to review, await records from [facility]
U osmo was high 523, U na 49-suggest high ADH activity with low Bps and severe anemia
sodium improved to 127 with 3% saline again, seem to drop sodium levels off HTS
cont close monitoring of sodium and likely restart HTS if drops more, start salt tab
maintain FR 48 ouces/day
normal TSH and cortisol, neg U PCR
Bp stable, holding CCB
transfusion per primary, hb low again today
GI follows, eventual EGD
Fe def noted, start IV fe course
replace k
d/w pt and nursing
-
-
Date of Service: June 19, 2024
CC / HPI / ROS
-
Chief Complaint:
hyponatremia
History of Present Illness:
sodium better at 127 then drop to 122, restarted HTS last evening and this am at 126
Bps table, hb low 6.5, getting 1 unit now
k low 3.1
Review of Systems:
no cp or sob
no pain
no n/v
Labs
-
Labs:
WBC 5.2 10^3/uL (4.8-10.8) 06/19/24 04:10
RBC 1.98 10^6/uL (4.70-6.10) L 06/19/24 04:10
Hct 19.1 % (39.0-52.0) L* 06/19/24 04:10
Plt Count 339 10^3/uL (130-400) 06/19/24 04:10
Potassium 3.1 mmol/L (3.5-5.1) L 06/19/24 04:10
Chloride 93 mmol/L (98-107) L 06/19/24 04:10
Carbon Dioxide 31 mmol/L (22-30) H 06/19/24 04:10
BUN 11 mg/dl (9-20) 06/19/24 04:10
Creatinine 0.6 mg/dL (0.7-1.3) L 06/19/24 04:10
eGFR > 60.00 06/19/24 04:10
Glucose 84 mg/dl (70-99) 06/19/24 04:10
Calcium 7.3 mg/dl (8.4-10.2) L 06/19/24 04:10
Albumin 2.5 g/dl (3.5-5.0) L 06/17/24 14:50
Physical Exam
-
Vital Signs:
Vital Signs
Temp Pulse Resp BP Pulse Ox
97.7 F 58 15 134/105 94
06/19/24 08:48 06/19/24 10:00 06/19/24 10:00 06/19/24 10:00 06/19/24 10:00
Cardiovascular:: Regular rate and rhythm
Respiratory:: Bilateral: CTA
Lung Excursion:: Normal
Abdomen:: Nontender and Soft
Extremity Edema:: None: Bilateral: (trace)
[place] Catheter: No
[2024-06-19 12:13] LABS: Sodium 127 mmol/L (135-145)
[2024-06-19 12:20] LABS: Hemoglobin 9.4 g/dL (13.0-18.0)
[2024-06-19 12:26] LABS: Magnesium 1.8 mg/dl (1.6-2.3)
[2024-06-19] MEDS: SODIUM CHLORIDE 1 GRAM PO ×2 (13:11→19:52)
[2024-06-19] MEDS: KCL 270 MEQ IV (13:11)
[2024-06-19] MEDS: FERRLECIT 110 MG IV (13:51)
--- NOTE | 2024-06-19 14:56 | W.PN.GI.CBS2 ---
Today's Communication / Plan
-
Hgb 6.5 --> 9.4 following 1 unit of PRBC, maroon-colored stool. Recommend EGD/Colonoscopy on Monday, as long as sodium >130
Assessment / Plan
-
63-year-old male with history of CVA on aspirin/ Plavix, history of GI bleed unclear etiology (?ulcer) at [facility] several months ago currently off PPI, hx CAD s/p PCI (07/2023), alcohol abuse, seizure disorder presenting from rehab
with hypotension and lightheadedness, in the ER he was noted to have hemoglobin of 4.6 with iron deficiency indices, heme positive stool and GI consult was called in. He was also noted to be hyponatremic. Plavix on hold, ASA resumed yesterday.
Hgb 4.6 --> 7.5 s/p 2 units PRBC. AM hemoglobin was 6.5 --> 9.4 s/p 1unit of PRBC this morning. He has received a total of 3 units PRBC since admission. He had a maroon colored stool earlier this morning.
#Anemia
#Melena
#Maroon-colored stool
#Family history of CRC
#Hyponatremia
Plan:
-ASA resumed, Plavix on hold, awaiting washout. Initially, had planned for just EGD on monday, but given color of stool today without prior colonoscopy and significant family history, would recommend EGD and Colonoscopy on Monday, as long as sodium
>130, currently 127
-2 large-bore peripheral gauge IVs
-Trend H&H q12 hours, tranfuse for Hgb <8
-CLD tomorrow + colon prep
Subjective
Subjective
Date of Service: June 19, 2024
He was transfused with 1 unit PRBC this morning. ASA resumed on 06/18, Plavix on hold. Currently on clear liquids. He offers no complaints
Objective
Data Reviewed
Laboratory Data:
Laboratory Results
PT 16.2 Sec (11.4-14.6) H 06/19/24 04:10
INR 1.27 06/19/24 04:10
Magnesium 1.8 mg/dl (1.6-2.3) 06/19/24 04:10
Total Bilirubin 0.3 mg/dl (0.2-1.3) 06/17/24 14:50
AST 42 U/L (17-59) 06/17/24 14:50
ALT 38 U/L (0-50) 06/17/24 14:50
Alkaline Phosphatase 90 U/L (38-126) 06/17/24 14:50
Vital Signs and I&O:
Vital Signs
Temp Pulse Resp BP Pulse Ox
97.4 F 58 15 134/105 94
06/19/24 11:05 06/19/24 10:00 06/19/24 10:00 06/19/24 10:00 06/19/24 10:00
I&O
06/18/24 06/19/24 06/20/24
06:59 06:59 06:59
Intake Total 500 / 500 1255 / 1255 350 / 350
Output Total 125 / 125 670 / 670 200 / 200
Balance 375 / 375 585 / 585 150 / 150
Physical Exam
Physical Exam
GI: Soft, Non Distended, Non Tender and Normal Bowel Sounds
[2024-06-19 17:06] LABS: Sodium 126 mmol/L (135-145)
[2024-06-19] MEDS: LIPITOR 40 MG PO (19:52)
[2024-06-19 20:24] LABS: Hemoglobin 8.7 g/dL (13.0-18.0)
[2024-06-19 20:41] LABS: Sodium 126 mmol/L (135-145)
[2024-06-19] MEDS: SODIUM CHLORIDE 3% 250 IV (23:15)
--- NOTE | 2024-06-19 23:21 | PTCARENOTE ---
Dr. Alaniz made aware of 2000 sodium result of 126. Orders for 3% sodium chloride received. Ok to skip midnight sodium lab draw and check at 0400 per .
[2024-06-20] VITALS (19 sets, daily range): BP systolic 88–154; BP diastolic 72–107; PULSE 68–120; O2SAT 100; BMI 15.9
--- NOTE | 2024-06-20 04:43 | PTCARENOTE ---
Patient verbalizing his frustration on not being able to eat and getting blood drawn frequently. Education and support provided. 3% NaCl infusing at this time via LUE midline. Encouraged to reposition self while in bed. NSR/SB on tele. No BM
overnight. Call floyd and tray table left within reach.
[2024-06-20 05:01] LABS: Hematocrit 26.2 % (39.0-52.0); Hemoglobin 8.7 g/dL (13.0-18.0); Mean Corp Hgb Conc. 33.2 g/dL (33.0-37.0); Mean Corpuscular Hgb 30.6 pg (27.0-31.0); Mean Corpuscular Volume 92.3 fL (80.0-94.0); Mean Platelet Volume 9.3 fL (7.4-10.4); Platelet Count 381 10^3/uL (130-400); Red Blood Cell Count 2.84 10^6/uL (4.70-6.10); Red Cell Dist. Width 16.9 % (11.5-14.5); White Blood Cell Count 5.5 10^3/uL (4.8-10.8)
[2024-06-20 05:25] LABS: Blood Urea Nitrogen 10 mg/dl (9-20); Calcium 7.4 mg/dl (8.4-10.2); Carbon Dioxide 27 mmol/L (22-30); Chloride 98 mmol/L (98-107); Estimated Creatinine Clearance 97 ml/min; Glucose 82 mg/dl (70-99); Potassium 3.7 mmol/L (3.5-5.1); Sodium 127 mmol/L (135-145); eGFR > 60.00
--- NOTE | 2024-06-20 07:31 | W.PN.HOSP.TC ---
Today's Communication/Plan
-
see plan
Assessment / Plan
Assessment / Plan
Mr. Tay Zamudio is a 63 yo man with hx CVA on Asa/Plavix, recent admission to [place] for seizures and GIB (per patient, requested records) [facility] and low blood pressure with exertion.
Melena
Acute Blood Loss Anemia
-need to obtain outpatient records from [place] - requested by the ER
-s/p 2 units with appropriate rise; additional unit this AM (06/19)
-hold BURN NURSE Asa/Plavix given life threatening anemia -resumed aspirin on 06/18
-IV Protonix
-trend Hg
-GI consult appreciated, eventual EGD and possible [place]
-clear liquid diet
Hyponatremia
-in setting of melena and dehydration, may be component of SIADH based on urine studies
-required hypertonic saline overnight as Na decreased to 120 post blood and IVF; and repeat hypertonic saline on 06/18
-Nephrology consult appreciated
-continue salt tabs
-repeat Na at 4 PM - will discuss plan with renal as goal Na tomorrow is > 130
CAD with Hx PCI
-PCI was July 2023 - confirmed with daughter
-aspirin resumed
-hold Plavix
Recent CVA
-aspirin, hold Plavix
-BURN NURSE statin
Seizures
-BURN NURSE Lacosamide
Essential HTN
-patient was hypotensive on arrival
-hold BURN NURSE Amlodipine
DVT PPx SCD
FULL CODE
51 minutes spent on patient care
Anticipated Discharge: > 48 hours
Subjective/Interval History
-
Date of Service: June 20, 2024
feeling ok, no bloody BM overnight
Objective Data
-
Labs:
Laboratory Results
06/19/24 06/20/24 06/20/24
20:14 00:00 04:36
WBC 5.5
Hgb 8.7 L 8.7 L
Hct 26.2 L
Plt Count 381
Sodium 126 L Cancelled 127 L
Potassium
Chloride
Carbon Dioxide
BUN
Creatinine
Glucose
Calcium
06/20/24 06/20/24
04:36 16:00
WBC
Hgb Pending
Hct
Plt Count
Sodium Cancelled
Potassium 3.7
Chloride 98
Carbon Dioxide 27
BUN 10
Creatinine 0.6 L
Glucose 82
Calcium 7.4 L
Vital Signs:
Vital Signs
Temp Pulse Resp BP Pulse Ox
97.7 F 48 15 125/81 96
06/20/24 04:27 06/20/24 04:00 06/20/24 04:00 06/20/24 04:00 06/20/24 00:45
I&O
06/19/24 06/20/24 06/21/24
06:59 06:59 06:59
Intake Total 1255 / 1255 1150 / 1150
Output Total 670 / 670 1300 / 1300
Balance 585 / 585 -150 / -150
Review of Systems
-
History Source: Patient
All other systems: Reviewed and negative
Physical Exam
-
General: No Apparent Distress and Comfortable
HEENT: PERRLA
Respiratory: Clear to Auscultation; Negative Wheezes
Cardiac: Regular Rhythm and S1/S2
GI: Soft and Nontender
Musculoskeletal: No Edema
Skin: Warm and Dry; Negative Rash
Neuro: AO x 3
Psych: Calm
Data Reviewed
-
Diagnostic Radiology: Report Reviewed by me
Labs: Labs Reviewed by me
--- NOTE | 2024-06-20 09:14 | PN.CDI ---
CDI
- -
CDI:
Physician Documentation Request
Admit Date: 06/17/24 18:45
Dear Doctor Parish,
Patient admitted with melena.
Please review the following and provide your response in the progress notes.
Clinical Indicators: On admission
Height: 6' 1'
Weight: 111 lb 5 oz
BMI: 14.7
Other Clinical Notes:
Please provide an associated diagnosis related to the abnormal BMI, such as:
Underweight
Cachectic
Anorexia
BMI is insignificant
Other
BMI < or = to 19
Underweight
Weight Loss
Cachectic
Anorexia
Use of terms such as suspected, likely, concern for, or probable (associated with a specific diagnosis that is being evaluated, monitored, or treated as if it exists) are acceptable and can be coded in the inpatient setting, when documented at the
time of discharge.
Thank you,
Shania LAL,RN,CCDS
CDI Specialist
Available via tiger text
Please use your independent medical judgment in providing your response.
--- NOTE | 2024-06-20 09:35 | PN.CDI ---
CDI
- -
CDI:
Physician Documentation Request
Admit Date: 06/17/24 18:45
Dear Doctor Parish,
Patient admitted with melena.
K levels documented below:
Patient received Potassium Chloride 40 meq IV x 1 on 06/19.
Laboratory Tests
06/18/24 06/19/24 06/20/24
06:15 04:10 04:36
Potassium 3.5 3.1 L 3.7
Based on the above, please clarify in the progress notes, the appropriate diagnosis, if significant, that supports the above abnormalities and additional evaluation, monitoring and/or treatment rendered:
Hypokalemia
Insignificant abnormal lab finding
Other
Use of terms such as suspected, likely, concern for, or probable (associated with a specific diagnosis that is being evaluated, monitored, or treated as if it exists) are acceptable and can be coded in the inpatient setting, when documented at the
time of discharge.
Thank you,
Shania LAL,RN,CCDS
CDI Specialist
Available via tiger text
Please use your independent medical judgment in providing your response.
[2024-06-20] MEDS: LOW STRENGTH ASPIRIN 81 MG PO (10:45)
[2024-06-20] MEDS: VIMPAT 200 MG PO ×2 (10:45→21:27)
[2024-06-20] MEDS: SODIUM CHLORIDE 1 GRAM PO ×2 (10:45→21:27)
[2024-06-20] MEDS: FOLVITE 1 MG PO (10:45)
[2024-06-20] MEDS: VITAMIN B1 100 MG PO (10:45)
[2024-06-20] MEDS: PROTONIX IV 40 MG IV ×2 (10:46→21:27)
[2024-06-20] MEDS: NSS (PRESERVATIVE FREE) 10 ML IV ×2 (10:46→21:26)
[2024-06-20] MEDS: FLUSH (NSS) 1 FLUSH IV (10:46)
--- NOTE | 2024-06-20 10:57 | W.PN.GI.CBS2 ---
Addendum entered and electronically signed by Dara Larsen MD 06/20/24 14:51:
I saw and examined the patient.
The [facility] NURSE or PA's note was reviewed and I agree with the note.
Comment:
Pt without overt bleeding, sitting in chair w/o complaints
oriented
impression
anemia
GIB
hx of ?PUD
hyponatremia
plan:
egd/colonoscopy tomorrow if sodium is above 130 (checking this afternoon)
if can't prep can consider egd alone
monitor hgb
Original Note:
Today's Communication / Plan
-
Plan on EGD/colonoscopy tomorrow if sodium greater than 130
Assessment / Plan
-
63-year-old male with history of CVA on aspirin/ Plavix, history of GI bleed unclear etiology (?ulcer) at [facility] several months ago currently off PPI, hx CAD s/p PCI (07/2023), alcohol abuse, seizure disorder presenting from rehab
with hypotension and lightheadedness, in the ER he was noted to have hemoglobin of 4.6 with iron deficiency indices, heme positive stool and GI consult was called in. He was also noted to be hyponatremic. Plavix on hold, ASA resumed yesterday.
Hgb 4.6 --> 7.5 s/p 2 units PRBC. AM hemoglobin was 6.5 --> 9.4 s/p 1unit of PRBC --> 8.7 this morning. He has received a total of 3 units PRBC since admission. Patient with brown OB positive stools last evening. No further bowel movements.
#Anemia
#Melena
#Maroon-colored stool
#Family history of CRC
#Hyponatremia
Plan:
-ASA resumed, Plavix on hold, awaiting washout. Initially, had planned for just EGD on monday, but given color of stool 06/19 that was brown/maroon without prior colonoscopy and significant family history, would recommend EGD and Colonoscopy on
Monday, as long as sodium >130, currently 127.
-2 large-bore peripheral gauge IVs
-Trend H&H q12 hours, tranfuse for Hgb <8
-CLD + colon prep if sodium greater than 130. Will repeat sodium level at 4 PM today.
Subjective
Subjective
Date of Service: June 20, 2024
Patient without any abdominal pain, nausea or vomiting. Tolerating clear liquid diet. Patient with brown stool yesterday. Stool was OB positive. Hemoglobin currently 8.7 down from 9.4. Sodium is 127. Still being corrected at this time. Needs
to be 130 or greater in order to prep for colonoscopy. Plan is endoscopy colonoscopy tomorrow if able to correct sodium 130 or greater. Patient is agreeable.
Objective
Data Reviewed
Laboratory Data:
Laboratory Results
PT 16.2 Sec (11.4-14.6) H 06/19/24 04:10
INR 1.27 06/19/24 04:10
Magnesium 1.8 mg/dl (1.6-2.3) 06/19/24 04:10
Total Bilirubin 0.3 mg/dl (0.2-1.3) 06/17/24 14:50
AST 42 U/L (17-59) 06/17/24 14:50
ALT 38 U/L (0-50) 06/17/24 14:50
Alkaline Phosphatase 90 U/L (38-126) 06/17/24 14:50
Vital Signs and I&O:
Vital Signs
Temp Pulse Resp BP Pulse Ox
97.7 F 96 17 88/77 96
06/20/24 04:27 06/20/24 10:13 06/20/24 10:13 06/20/24 10:13 06/20/24 00:45
I&O
06/19/24 06/20/24 06/21/24
06:59 06:59 06:59
Intake Total 1255 / 1255 1150 / 1150
Output Total 670 / 670 1300 / 1300
Balance 585 / 585 -150 / -150
Physical Exam
Physical Exam
HEENT: Anicteric
Cardiology: Normal Sinus Rhythm
Pulmonary: Clear
GI: Soft, Non Distended, Non Tender and Normal Bowel Sounds
Neuro: Non Focal
--- NOTE | 2024-06-20 11:58 | W.PN.NEPH.PH ---
Today's Communication / Plan
-
Continue sodium chloride tablet
Assessment/Plan
-
IMP:
Melena
Acute Blood Loss Anemia
Hyponatremia
CAD with Hx PCI
Recent CVA
Seizures
Essential HTN
ETOH abuse
CHF?
GERD
COPD
hyperlipidemia
anxiety
Plan:
A/w dizziness, radha, blood loss anemia
HYpoantremia-no old labs to review, await records from [facility]
U osmo was high 523, U na 49-suggest high ADH activity with low Bps and severe anemia
maintain FR 48 ouces/day
normal TSH and cortisol, neg U PCR
Bp stable
transfusion per primary
GI follows, eventual EGD
Sodium stable 127
Continue sodium chloride tabs
No other changes made
Pending EGD/colon tomorrow
-
-
Date of Service: June 20, 2024
CC / HPI / ROS
-
Chief Complaint:
hyponatremia
History of Present Illness:
Status post hypertonic saline
Sodium stable 127
Review of Systems:
no cp or sob
no pain
no n/v
Labs
-
Labs:
WBC 5.5 10^3/uL (4.8-10.8) 06/20/24 04:36
RBC 2.84 10^6/uL (4.70-6.10) L 06/20/24 04:36
Hct 26.2 % (39.0-52.0) L 06/20/24 04:36
Plt Count 381 10^3/uL (130-400) 06/20/24 04:36
Potassium 3.7 mmol/L (3.5-5.1) 06/20/24 04:36
Chloride 98 mmol/L (98-107) 06/20/24 04:36
Carbon Dioxide 27 mmol/L (22-30) 06/20/24 04:36
BUN 10 mg/dl (9-20) 06/20/24 04:36
Creatinine 0.6 mg/dL (0.7-1.3) L 06/20/24 04:36
eGFR > 60.00 06/20/24 04:36
Glucose 82 mg/dl (70-99) 06/20/24 04:36
Calcium 7.4 mg/dl (8.4-10.2) L 06/20/24 04:36
Albumin 2.5 g/dl (3.5-5.0) L 06/17/24 14:50
Physical Exam
-
Vital Signs:
Vital Signs
Temp Pulse Resp BP Pulse Ox
97.7 F 96 17 88/77 96
06/20/24 04:27 06/20/24 10:13 06/20/24 10:13 06/20/24 10:13 06/20/24 00:45
Cardiovascular:: Regular rate and rhythm
Respiratory:: Bilateral: CTA
Lung Excursion:: Normal
Abdomen:: Nontender and Soft
Extremity Edema:: None: Bilateral: (trace)
[place] Catheter: No
[2024-06-20] MEDS: FERRLECIT 110 MG IV (15:29)
[2024-06-20] MEDS: FLUSH (NSS) 2 FLUSH IV (15:30)
[2024-06-20 16:49] LABS: Hemoglobin 10.6 g/dL (13.0-18.0)
[2024-06-20 16:52] LABS: Sodium 127 mmol/L (135-145)
[2024-06-20] MEDS: LIPITOR 40 MG PO (21:27)
[2024-06-21] VITALS (13 sets, daily range): BP systolic 116–147; BP diastolic 74–115
--- NOTE | 2024-06-21 03:14 | PTCARENOTE ---
Pt tearful at the start of shift; apologized for 'freaking out' over night. Provided emotional support. OOB to chair at start of shift. Able to get to bed with an assist of 1; denies dizziness. VSS at this time. Bed alarm on. Call floyd within
reach.
[2024-06-21 04:53] LABS: Hematocrit 27.8 % (39.0-52.0); Mean Corp Hgb Conc. 32.4 g/dL (33.0-37.0); Mean Corpuscular Volume 95.9 fL (80.0-94.0); Mean Platelet Volume 9.3 fL (7.4-10.4); Platelet Count 416 10^3/uL (130-400); Red Cell Dist. Width 16.9 % (11.5-14.5); White Blood Cell Count 5.3 10^3/uL (4.8-10.8)
[2024-06-21 05:15] LABS: Blood Urea Nitrogen 9 mg/dl (9-20); Calcium 7.6 mg/dl (8.4-10.2); Carbon Dioxide 27 mmol/L (22-30); Chloride 96 mmol/L (98-107); Estimated Creatinine Clearance 97 ml/min; Glucose 77 mg/dl (70-99); Potassium 3.6 mmol/L (3.5-5.1); Sodium 127 mmol/L (135-145); eGFR > 60.00
--- NOTE | 2024-06-21 08:13 | W.PN.HOSP.TC ---
Addendum entered and electronically signed by Margaret Lugo MD 06/21/24 14:40:
Yes, melena/ acute blood loss anemia is associated with/ enhanced by Plavix.
Original Note:
Today's Communication/Plan
-
NPO for EGD today
Assessment / Plan
Assessment / Plan
Mr. Tay Zamudio is a 63 yo man with hx CVA on Asa/Plavix, recent admission to [place] for seizures and GIB (per patient, requested records) [facility] and low blood pressure with exertion.
Melena
Acute Blood Loss Anemia
-need to obtain outpatient records from [place] - requested by the ER
-s/p 2 units with appropriate rise; additional unit AM of 06/19 with stable Hg
-hold RACING SECRETARY AND HANDICAPPER Plavix, resumed aspirin on 06/18
-IV Protonix
-trend Hg
-GI consult appreciated, plan for EGD this AM; Na too low to give prep
Hyponatremia
-in setting of melena and dehydration, may be component of SIADH based on urine studies
-required hypertonic saline overnight as Na decreased to 120 post blood and IVF; and repeat hypertonic saline on 06/18
-Nephrology consult appreciated
-continue salt tabs
CAD with Hx PCI
-PCI was July 2023 - confirmed with daughter
-aspirin resumed
-hold Plavix
Hypokalemia
-repleted
Underweight
-appreciate dietary
Recent CVA
-aspirin, hold Plavix
-RACING SECRETARY AND HANDICAPPER statin
Seizures
-RACING SECRETARY AND HANDICAPPER Lacosamide
Essential HTN
-patient was hypotensive on arrival
-hold RACING SECRETARY AND HANDICAPPER Amlodipine
DVT PPx SCD
FULL CODE
51 minutes spent on patient care
Anticipated Discharge: 24 - 48 hours
Subjective/Interval History
-
Date of Service: June 21, 2024
feels hungry
Objective Data
-
Labs:
Laboratory Results
06/21/24
04:11
WBC 5.3
Hgb 9.0 L
Hct 27.8 L
Plt Count 416 H
Sodium 127 L
Potassium 3.6
Chloride 96 L
Carbon Dioxide 27
BUN 9
Creatinine 0.6 L
Glucose 77
Calcium 7.6 L
Vital Signs:
Vital Signs
Temp Pulse Resp BP Pulse Ox
97.8 F 82 17 132/115 98
06/21/24 07:30 06/21/24 06:00 06/21/24 06:00 06/21/24 06:00 06/21/24 02:47
I&O
06/20/24 06/21/24 06/22/24
06:59 06:59 06:59
Intake Total 1150 / 1150
Output Total 1300 / 1300 200 / 200
Balance -150 / -150 -200 / -200
Review of Systems
-
History Source: Patient
All other systems: Reviewed and negative
Physical Exam
-
General: No Apparent Distress and Comfortable
HEENT: PERRLA
Respiratory: Clear to Auscultation; Negative Wheezes
Cardiac: Regular Rhythm and S1/S2
GI: Soft and Nontender
Musculoskeletal: No Edema
Skin: Warm and Dry; Negative Rash
Neuro: AO x 3
Psych: Calm
Data Reviewed
-
Diagnostic Radiology: Report Reviewed by me
Labs: Labs Reviewed by me
[2024-06-21] MEDS: NSS (PRESERVATIVE FREE) 10 ML IV ×2 (09:12→19:54)
[2024-06-21] MEDS: PROTONIX IV 40 MG IV ×2 (09:13→19:54)
[2024-06-21] MEDS: VIMPAT 200 MG PO ×2 (09:16→19:54)
[2024-06-21] MEDS: VITAMIN B1 100 MG PO (09:17)
[2024-06-21] MEDS: LOW STRENGTH ASPIRIN 81 MG PO (09:17)
[2024-06-21] MEDS: FOLVITE 1 MG PO (09:17)
[2024-06-21] MEDS: SODIUM CHLORIDE 1 GRAM PO ×2 (09:17→19:54)
--- NOTE | 2024-06-21 10:05 | W.PN.NEPH.PH ---
Today's Communication / Plan
-
follow BMP
Assessment/Plan
-
IMP:
Melena
Acute Blood Loss Anemia
Hyponatremia
CAD with Hx PCI
Recent CVA
Seizures
Essential HTN
ETOH abuse
CHF?
GERD
COPD
hyperlipidemia
anxiety
Plan:
follow BMP
continue NaCl tabs
FR 48oz still
-
-
Date of Service: June 21, 2024
CC / HPI / ROS
-
Chief Complaint:
hyponatremia
History of Present Illness:
Status post hypertonic saline
Sodium stable 127 still
BP stable
K stable 3.6
Review of Systems:
no cp or sob
no pain
no n/v
eating clears
Labs
-
Labs:
WBC 5.3 10^3/uL (4.8-10.8) 06/21/24 04:11
RBC 2.90 10^6/uL (4.70-6.10) L 06/21/24 04:11
Hgb 9.0 g/dL (13.0-18.0) L 06/21/24 04:11
Hct 27.8 % (39.0-52.0) L 06/21/24 04:11
Plt Count 416 10^3/uL (130-400) H 06/21/24 04:11
Sodium 127 mmol/L (135-145) L 06/21/24 04:11
Potassium 3.6 mmol/L (3.5-5.1) 06/21/24 04:11
Chloride 96 mmol/L (98-107) L 06/21/24 04:11
Carbon Dioxide 27 mmol/L (22-30) 06/21/24 04:11
BUN 9 mg/dl (9-20) 06/21/24 04:11
Creatinine 0.6 mg/dL (0.7-1.3) L 06/21/24 04:11
eGFR > 60.00 06/21/24 04:11
Glucose 77 mg/dl (70-99) 06/21/24 04:11
Calcium 7.6 mg/dl (8.4-10.2) L 06/21/24 04:11
Albumin 2.5 g/dl (3.5-5.0) L 06/17/24 14:50
Physical Exam
-
Vital Signs:
Vital Signs
Temp Pulse Resp BP Pulse Ox
97.8 F 60 14 129/81 98
06/21/24 07:30 06/21/24 08:00 06/21/24 08:00 06/21/24 08:00 06/21/24 02:47
Cardiovascular:: Regular rate and rhythm
Respiratory:: Bilateral: CTA
Lung Excursion:: Normal
Abdomen:: Nontender and Soft
Bowel Sounds:: Normal
Extremity Edema:: None: Bilateral:
--- NOTE | 2024-06-21 11:56 | PN.CDI ---
CDI
- -
CDI:
Physician Documentation Request
Admit Date: 06/17/24 18:45
Dear Doctor Parsih,
Patient admitted with melena.
06/21 PN, 'melena....acute blood loss anemia....hold SUGAR TRUCKER Plavix....'
Please clarify the likely relationship between these conditions:
Yes, melena/ acute blood loss anemia is associated with/ enhanced by Plavix.
No, melena/ acute blood loss anemia is not associated with/ enhanced by Plavix but it is due to ___. (Please specify)
Unable to determine
Use of terms such as suspected, likely, concern for, or probable (associated with a specific diagnosis that is being evaluated, monitored, or treated as if it exists) are acceptable and can be coded in the inpatient setting, when documented at the
time of discharge.
Thank you,
Shania LAL,RN,CCDS
CDI Specialist
Available via [place] text
Please use your independent medical judgment in providing your response.
[2024-06-21 12:20] LABS: Osmolality Urine 664 mOsm/kg (300-900)
[2024-06-21 13:16] LABS: Urine Sodium 147 mmol/L (30-90)
[2024-06-21] MEDS: FERRLECIT 110 MG IV (14:44)
[2024-06-21] MEDS: FLUSH (NSS) 2 FLUSH IV (14:45)
--- NOTE | 2024-06-21 15:45 | W.PN.GI.CBS2 ---
Addendum entered and electronically signed by Davin Zhao MD 06/21/24 18:56:
I saw and examined the patient.
The PA's note was reviewed and I agree with the note.
Comment:
EGD/colonoscopy planned but being held due to hyponatremia (Na 127). Renal on board. Plavix last dose on 06/17. Hgb remains relatively stable. Will follow Na level closely to determine the timing of the procedure.
Original Note:
Today's Communication / Plan
-
as per plan
Assessment / Plan
-
63-year-old male with history of CVA on aspirin/ Plavix, history of GI bleed unclear etiology (?ulcer) at [facility] several months ago currently off PPI, hx CAD s/p PCI (07/2023), alcohol abuse, seizure disorder presenting from rehab
with hypotension and lightheadedness, in the ER he was noted to have hemoglobin of 4.6 with iron deficiency indices, heme positive stool and GI consult was called in. He was also noted to be hyponatremic. Plavix on hold, ASA resumed yesterday.
Hgb 4.6 --> 7.5 s/p 2 units PRBC. AM hemoglobin was 6.5 --> 9.4 s/p 1unit of PRBC --> 8.7--> 9.0 this morning. He has received a total of 3 units PRBC since admission. Patient with brown OB positive stools last evening. No further bowel movements.
#Anemia
#Melena
#Maroon-colored stool
#Family history of CRC
#Hyponatremia
Plan:
-ASA resumed, Plavix on hold, awaiting washout. Initially, had planned for just EGD, but given color of stool 06/19 that was brown/maroon without prior colonoscopy and significant family history, would recommend EGD and Colonoscopy, as long as
sodium >130, currently 127.
-CLD + colon prep if sodium greater than 130.
-Appreciate nephrology assistance in trying to achieve sodium greater than 130. Hopefully will be able to prep patient for EGD/colonoscopy.
-Will add Ensure clear twice daily. Patient on fluid restriction as well.
Subjective
Subjective
Date of Service: June 21, 2024
Patient with no signs of active bleeding. Hemoglobin stable. Sodium still 127. Will hold off on endoscopy until able to do endoscopy and colonoscopy together. Hopefully will be able to increase sodium so able to prep. Appreciate nephrology
assistance with this. Patient without any abdominal discomfort.
Objective
Data Reviewed
Laboratory Data:
Laboratory Results
06/21/24 04:11
06/21/24 04:11
Laboratory Results
PT 16.2 Sec (11.4-14.6) H 06/19/24 04:10
INR 1.27 06/19/24 04:10
Magnesium 1.8 mg/dl (1.6-2.3) 06/19/24 04:10
Total Bilirubin 0.3 mg/dl (0.2-1.3) 06/17/24 14:50
AST 42 U/L (17-59) 06/17/24 14:50
ALT 38 U/L (0-50) 06/17/24 14:50
Alkaline Phosphatase 90 U/L (38-126) 06/17/24 14:50
Vital Signs and I&O:
Vital Signs
Temp Pulse Resp BP Pulse Ox
98.1 F 60 15 147/84 97
06/21/24 11:15 06/21/24 14:00 06/21/24 14:00 06/21/24 14:00 06/21/24 14:55
I&O
06/20/24 06/21/24 06/22/24
06:59 06:59 06:59
Intake Total 1150 / 1150 600 / 600
Output Total 1300 / 1300 200 / 200 90 / 90
Balance -150 / -150 -200 / -200 510 / 510
Physical Exam
Physical Exam
HEENT: Anicteric
Cardiology: Normal Sinus Rhythm
Pulmonary: Clear (Anterior)
GI: Soft, Non Distended and Non Tender
Neuro: Non Focal
--- NOTE | 2024-06-21 16:00 | PTCARENOTE ---
Patient out of bed to chair with heavy assistance x2. Tolerating regular diet but need a good set up. Aspiration precautions. Patient confused and has trouble following simple commands. Bed alarm and chair alarm in place. VS stable. SR/SB,
afebrile. Will continue monitor.
[2024-06-21] MEDS: LIPITOR 40 MG PO (19:54)
[2024-06-22] VITALS (12 sets, daily range): BP systolic 113–144; BP diastolic 72–122; BMI 16.1
--- NOTE | 2024-06-22 04:50 | PTCARENOTE ---
Tay wanted to be left alone overnight. Emotional support and encouragement provided. Clustering care to allow patient to rest. Patient able to turn self. Pt calls appropriately for assistance with urinal. No BM. Tolerating clears. Swallowing pills
w/ water, no s/s of aspiration. SB/SR w/ PVCs. Edema to ankles and proximal forearms. Warm blanket provided for comfort, denies pain. Call floyd and tray table left within reach.
[2024-06-22 05:36] LABS: Hematocrit 26.6 % (39.0-52.0); Hemoglobin 8.6 g/dL (13.0-18.0); Mean Corp Hgb Conc. 32.3 g/dL (33.0-37.0); Mean Platelet Volume 8.9 fL (7.4-10.4); Platelet Count 402 10^3/uL (130-400); Red Blood Cell Count 2.77 10^6/uL (4.70-6.10); Red Cell Dist. Width 16.7 % (11.5-14.5)
[2024-06-22 05:52] LABS: Blood Urea Nitrogen 9 mg/dl (9-20); Calcium 7.6 mg/dl (8.4-10.2); Carbon Dioxide 26 mmol/L (22-30); Chloride 98 mmol/L (98-107); Estimated Creatinine Clearance 99 ml/min; Glucose 76 mg/dl (70-99); Potassium 3.7 mmol/L (3.5-5.1); Sodium 127 mmol/L (135-145); eGFR > 60.00
--- NOTE | 2024-06-22 07:59 | W.PN.HOSP.TC ---
Today's Communication/Plan
-
additional Lasix this AM, repeat Na 3PM - consider higher dose Lasix based on urine output
appreciate consultants
Assessment / Plan
Assessment / Plan
Mr. Tay Zamudio is a 63 yo man with hx CVA on Asa/Plavix, recent admission to [place] for seizures and GIB (per patient, requested records) [facility] and low blood pressure with exertion.
Melena
Acute Blood Loss Anemia
-need to obtain outpatient records from [place] - requested by the ER
-s/p 2 units with appropriate rise; additional unit AM of 06/19 with stable Hg
-hold PAD EXTRACTOR TENDER Plavix, resumed aspirin on 06/18
-IV Protonix BID
-trend Hg
-GI consult appreciated, plan for EGD and [place] once Na > 130
Hyponatremia
SIADH
-required hypertonic saline overnight of admission as Na decreased to 120 post blood and IVF; and repeat hypertonic saline on 06/18
-Nephrology consult appreciated
-continue salt tabs
-patient now with LE edema - will order additional lasix this AM and repeat Na at 3PM
CAD with Hx PCI
-PCI was July 2023 - confirmed with daughter
-aspirin resumed
-hold Plavix
Hypokalemia
-repleted
Underweight
-appreciate dietary
Recent CVA
-aspirin, hold Plavix
-PAD EXTRACTOR TENDER statin
Seizures
-PAD EXTRACTOR TENDER Lacosamide
Essential HTN
-patient was hypotensive on arrival
-hold PAD EXTRACTOR TENDER Amlodipine
DVT PPx SCD
FULL CODE
51 minutes spent on patient care
Anticipated Discharge: > 48 hours
Subjective/Interval History
-
Date of Service: June 22, 2024
LE swelling
no chest pain or shortness of breath
no further bleeding
Objective Data
-
Labs:
Laboratory Results
06/22/24 06/22/24
05:20 15:00
WBC 5.0
Hgb 8.6 L
Hct 26.6 L
Plt Count 402 H
Sodium 127 L Pending
Potassium 3.7
Chloride 98
Carbon Dioxide 26
BUN 9
Creatinine 0.6 L
Glucose 76
Calcium 7.6 L
Vital Signs:
Vital Signs
Temp Pulse Resp BP Pulse Ox
97.8 F 54 15 128/80 97
06/22/24 05:09 06/22/24 06:00 06/22/24 06:00 06/22/24 06:00 06/22/24 05:10
I&O
06/21/24 06/22/24 06/23/24
06:59 06:59 06:59
Intake Total 600 / 600
Output Total 200 / 200 215 / 215
Balance -200 / -200 385 / 385
Review of Systems
-
History Source: Patient
All other systems: Reviewed and negative
Physical Exam
-
General: No Apparent Distress and Comfortable
HEENT: PERRLA
Respiratory: Clear to Auscultation; Negative Wheezes
Cardiac: Regular Rhythm and S1/S2
GI: Soft and Nontender
Musculoskeletal: Edema, Right Lower Extrem and Edema, Left Lower Extrem
Skin: Warm and Dry; Negative Rash
Neuro: AO x 3
Psych: Calm
Data Reviewed
-
Diagnostic Radiology: Report Reviewed by me
Labs: Labs Reviewed by me
[2024-06-22] MEDS: LOW STRENGTH ASPIRIN 81 MG PO (09:49)
[2024-06-22] MEDS: FOLVITE 1 MG PO (09:49)
[2024-06-22] MEDS: SODIUM CHLORIDE 1 GRAM PO ×2 (09:49→19:48)
[2024-06-22] MEDS: VITAMIN B1 100 MG PO (09:49)
[2024-06-22] MEDS: VIMPAT 200 MG PO ×2 (09:49→19:51)
[2024-06-22] MEDS: PROTONIX IV 40 MG IV ×2 (09:50→19:48)
[2024-06-22] MEDS: NSS (PRESERVATIVE FREE) 10 ML IV ×2 (09:50→19:47)
[2024-06-22] MEDS: KCL 270 MEQ IV (09:59)
--- NOTE | 2024-06-22 10:06 | W.PN.NEPH.PH ---
Today's Communication / Plan
-
samsca
Assessment/Plan
-
IMP:
Melena
Acute Blood Loss Anemia
Hyponatremia
CAD with Hx PCI
Recent CVA
Seizures
Essential HTN
ETOH abuse
CHF?
GERD
COPD
hyperlipidemia
anxiety
Plan:
follow BMP
continue NaCl tabs
FR 48oz still
samsca today
-
-
Date of Service: June 22, 2024
CC / HPI / ROS
-
Chief Complaint:
hyponatremia
History of Present Illness:
Sodium stable 127 still
BP stable
K stable 3.7
Review of Systems:
no cp or sob
no pain
no n/v
Labs
-
Labs:
WBC 5.0 10^3/uL (4.8-10.8) 06/22/24 05:20
RBC 2.77 10^6/uL (4.70-6.10) L 06/22/24 05:20
Hgb 8.6 g/dL (13.0-18.0) L 06/22/24 05:20
Hct 26.6 % (39.0-52.0) L 06/22/24 05:20
Plt Count 402 10^3/uL (130-400) H 06/22/24 05:20
Potassium 3.7 mmol/L (3.5-5.1) 06/22/24 05:20
Chloride 98 mmol/L (98-107) 06/22/24 05:20
Carbon Dioxide 26 mmol/L (22-30) 06/22/24 05:20
BUN 9 mg/dl (9-20) 06/22/24 05:20
Creatinine 0.6 mg/dL (0.7-1.3) L 06/22/24 05:20
eGFR > 60.00 06/22/24 05:20
Glucose 76 mg/dl (70-99) 06/22/24 05:20
Calcium 7.6 mg/dl (8.4-10.2) L 06/22/24 05:20
Albumin 2.5 g/dl (3.5-5.0) L 06/17/24 14:50
Physical Exam
-
Vital Signs:
Vital Signs
Temp Pulse Resp BP Pulse Ox
97.3 F 61 16 144/99 96
06/22/24 07:15 06/22/24 10:00 06/22/24 10:00 06/22/24 10:00 06/22/24 10:03
Cardiovascular:: Regular rate and rhythm
Respiratory:: Bilateral: CTA
Lung Excursion:: Normal
Abdomen:: Nontender and Soft
Bowel Sounds:: Normal
Extremity Edema:: None: Bilateral:
[2024-06-22] MEDS: SAMSCA 15 MG PO (13:05)
[2024-06-22] MEDS: FERRLECIT 110 MG IV (14:17)
[2024-06-22 14:48] LABS: Sodium 127 mmol/L (135-145)
--- NOTE | 2024-06-22 16:19 | PTCARENOTE ---
Patient has been irritable, angry, and hostile to staff all shift, frequently states that he 'doesn't care' (when RN provides any education/updates) and that staff is just 'dicking him around'. RN explained to patient plan of care, lab work,
medications, and clinical significance of lab work/plan of care but patient remains irritated and short/rude with staff. Hospitalist and nephrology have been by as well to explain plan of care to patient. RN has offered assistance with daily hygiene
care, but patient refused. Afternoon sodium is still 127. See MAR/flowsheets for further care details.
--- NOTE | 2024-06-22 17:03 | W.PN.GI.CBS2 ---
Today's Communication / Plan
-
Continue monitor sodium level
Assessment / Plan
-
63-year-old male with history of CVA on aspirin/ Plavix, history of GI bleed unclear etiology (?ulcer) at [facility] several months ago currently off PPI, hx CAD s/p PCI (07/2023), alcohol abuse, seizure disorder presenting from rehab
with hypotension and lightheadedness, in the ER he was noted to have hemoglobin of 4.6 with iron deficiency indices, heme positive stool and GI consult was called in. He was also noted to be hyponatremic. Plavix on hold, ASA resumed yesterday.
Hgb 4.6 --> 7.5 s/p 2 units PRBC. AM hemoglobin was 6.5 --> 9.4 s/p 1unit of PRBC --> 8.7--> 9.0 this morning. He has received a total of 3 units PRBC since admission. Patient with brown OB positive stools last evening. No further bowel movements.
#Anemia
#Melena
#Maroon-colored stool
#Family history of CRC
#Hyponatremia-required hypertonic saline during this admission
Plan:
-ASA resumed, Plavix on hold, awaiting washout. Initially, had planned for just EGD, but given color of stool 06/19 that was brown/maroon without prior colonoscopy and significant family history, would recommend EGD and Colonoscopy, as long as
sodium >130, currently 127.
-We will reevaluate next week
-Continue follow-up with nephrology recommendation
Total Time Spent with Patient (in minutes): 35
Subjective
Subjective
Date of Service: June 22, 2024
Denies any GI bleeding
Objective
Data Reviewed
Laboratory Data:
Laboratory Results
06/22/24 05:20
06/22/24 14:24
Laboratory Results
PT 16.2 Sec (11.4-14.6) H 06/19/24 04:10
INR 1.27 06/19/24 04:10
Magnesium 1.8 mg/dl (1.6-2.3) 06/19/24 04:10
Total Bilirubin 0.3 mg/dl (0.2-1.3) 06/17/24 14:50
AST 42 U/L (17-59) 06/17/24 14:50
ALT 38 U/L (0-50) 06/17/24 14:50
Alkaline Phosphatase 90 U/L (38-126) 06/17/24 14:50
Vital Signs and I&O:
Vital Signs
Temp Pulse Resp BP Pulse Ox
98.1 F 62 20 129/77 96
06/22/24 14:27 06/22/24 16:00 06/22/24 16:00 06/22/24 16:00 06/22/24 14:27
I&O
06/21/24 06/22/24 06/23/24
06:59 06:59 06:59
Intake Total 600 / 600 560 / 560
Output Total 200 / 200 215 / 215 1100 / 1100
Balance -200 / -200 385 / 385 -540 / -540
Physical Exam
Physical Exam
GI: Soft, Non Distended and Non Tender
[2024-06-22] MEDS: LIPITOR 40 MG PO (19:48)
--- NOTE | 2024-06-22 23:17 | PTCARENOTE ---
Pt received at beginning of shift resting in bed. AAOx3. Easily agitated. Very flat affect/WD. Not approachable for teaching. Requests to be left alone. Refuses to wear pulse oximeter. Rest of VSS stable. On RA. Refuses to use urinal unless someone
holds it in place even though pt is more than capable for placing urinal. Attends on and grossly 'incontinent' of urine. Pericare provided. Rest of assessment as documented. HS meds given without issue. Left midline without blood return. Call floyd
remains within reach. Will continue to monitor.
[2024-06-23] VITALS (10 sets, daily range): BP systolic 113–146; BP diastolic 68–114; BMI 15.7
--- NOTE | 2024-06-23 08:50 | W.PN.HOSP.TC ---
Today's Communication/Plan
-
awaiting AM labs
eventual EGD/[facility]
Assessment / Plan
Assessment / Plan
Mr. Tay Zamudio is a 63 yo man with hx CVA on Asa/Plavix, recent admission to [place] for seizures and GIB (per patient, requested records) [facility]ness and low blood pressure with exertion.
Melena
Acute Blood Loss Anemia
-need to obtain outpatient records from [place] - requested by the ER
-s/p 2 units with appropriate rise; additional unit AM of 06/19 with stable Hg
-hold TAPER/FINISHER Plavix, resumed aspirin on 06/18
-IV Protonix BID
-trend Hg
-GI consult appreciated, plan for EGD and [facility] once Na > 130. Burgundy stools noticed during hospitalization
Hyponatremia
SIADH
-required hypertonic saline overnight of admission as Na decreased to 120 post blood and IVF; and repeat hypertonic saline on 06/18
-Nephrology consult appreciated
-continue salt tabs
-s/p SAMSCA on 06/22 - awaiting AM labs
CAD with Hx PCI
-PCI was July 2023 - confirmed with daughter
-aspirin resumed
-hold Plavix
Hypokalemia
-repleted
Underweight
-appreciate dietary
Recent CVA
-aspirin, hold Plavix
-TAPER/FINISHER statin
Seizures
-TAPER/FINISHER Lacosamide
Essential HTN
-patient was hypotensive on arrival
-hold TAPER/FINISHER Amlodipine
DVT PPx SCD
FULL CODE
51 minutes spent on patient care
Anticipated Discharge: > 48 hours
Subjective/Interval History
-
Date of Service: June 23, 2024
no new complaints
states he urinated a lot yesterday
Objective Data
-
Labs:
Laboratory Results
06/23/24
06:00
WBC Pending
Hgb Pending
Hct Pending
Plt Count Pending
Sodium Pending
Potassium Pending
Chloride Pending
Carbon Dioxide Pending
BUN Pending
Creatinine Pending
Glucose Pending
Calcium Pending
Vital Signs:
Vital Signs
Temp Pulse Resp BP Pulse Ox
97.8 F 84 18 141/114 96
06/23/24 07:05 06/23/24 06:01 06/23/24 06:01 06/23/24 06:01 06/22/24 14:27
I&O
06/22/24 06/23/24 06/24/24
06:59 06:59 06:59
Intake Total 600 / 600 1100 / 1100
Output Total 215 / 215 2000 / 2000
Balance 385 / 385 -900 / -900
Review of Systems
-
History Source: Patient
All other systems: Reviewed and negative
Physical Exam
-
General: No Apparent Distress and Comfortable
HEENT: PERRLA
Respiratory: Clear to Auscultation; Negative Wheezes
Cardiac: Regular Rhythm and S1/S2
GI: Soft and Nontender
Musculoskeletal: Edema, Right Lower Extrem and Edema, Left Lower Extrem
Skin: Warm and Dry; Negative Rash
Neuro: AO x 3
Psych: Calm
Data Reviewed
-
Diagnostic Radiology: Report Reviewed by me
Labs: Labs Reviewed by me
[2024-06-23 09:25] LABS: Hematocrit 30.8 % (39.0-52.0); Mean Corp Hgb Conc. 32.5 g/dL (33.0-37.0); Mean Corpuscular Hgb 30.8 pg (27.0-31.0); Mean Corpuscular Volume 94.8 fL (80.0-94.0); Platelet Count 449 10^3/uL (130-400); Red Blood Cell Count 3.25 10^6/uL (4.70-6.10); Red Cell Dist. Width 17.2 % (11.5-14.5); White Blood Cell Count 5.9 10^3/uL (4.8-10.8)
[2024-06-23] MEDS: SODIUM CHLORIDE 1 GRAM PO ×2 (09:36→20:43)
[2024-06-23] MEDS: FOLVITE 1 MG PO (09:36)
[2024-06-23] MEDS: VIMPAT 200 MG PO ×2 (09:36→20:43)
[2024-06-23] MEDS: LOW STRENGTH ASPIRIN 81 MG PO (09:37)
[2024-06-23] MEDS: VITAMIN B1 100 MG PO (09:37)
[2024-06-23] MEDS: PROTONIX IV 40 MG IV ×2 (09:38→20:42)
[2024-06-23] MEDS: NSS (PRESERVATIVE FREE) 10 ML IV ×2 (09:38→20:42)
[2024-06-23 09:53] LABS: Blood Urea Nitrogen 6 mg/dl (9-20); Calcium 8.3 mg/dl (8.4-10.2); Carbon Dioxide 26 mmol/L (22-30); Chloride 104 mmol/L (98-107); Estimated Creatinine Clearance 82 ml/min; Glucose 79 mg/dl (70-99); Potassium 4.2 mmol/L (3.5-5.1); Sodium 136 mmol/L (135-145); eGFR > 60.00
--- NOTE | 2024-06-23 10:11 | W.PN.NEPH.PH ---
Today's Communication / Plan
-
follow BMP
Assessment/Plan
-
IMP:
Melena
Acute Blood Loss Anemia
Hyponatremia
CAD with Hx PCI
Recent CVA
Seizures
Essential HTN
ETOH abuse
CHF?
GERD
COPD
hyperlipidemia
anxiety
Plan:
follow BMP
continue NaCl tabs
FR 48oz still
restart amlodipine
-
-
Date of Service: June 23, 2024
CC / HPI / ROS
-
Chief Complaint:
hyponatremia
History of Present Illness:
Sodium up to 136 after samsca
BP stable
K stable
Review of Systems:
no cp or sob
no pain
no n/v
Labs
-
Labs:
WBC 5.9 10^3/uL (4.8-10.8) 06/23/24 09:18
RBC 3.25 10^6/uL (4.70-6.10) L 06/23/24 09:18
Hgb 10.0 g/dL (13.0-18.0) L 06/23/24 09:18
Hct 30.8 % (39.0-52.0) L 06/23/24 09:18
Plt Count 449 10^3/uL (130-400) H 06/23/24 09:18
Sodium 136 mmol/L (135-145) D 06/23/24 09:18
Potassium 4.2 mmol/L (3.5-5.1) 06/23/24 09:18
Chloride 104 mmol/L (98-107) 06/23/24 09:18
Carbon Dioxide 26 mmol/L (22-30) 06/23/24 09:18
BUN 6 mg/dl (9-20) L 06/23/24 09:18
Creatinine 0.7 mg/dL (0.7-1.3) 06/23/24 09:18
eGFR > 60.00 06/23/24 09:18
Glucose 79 mg/dl (70-99) 06/23/24 09:18
Calcium 8.3 mg/dl (8.4-10.2) L 06/23/24 09:18
Albumin 2.5 g/dl (3.5-5.0) L 06/17/24 14:50
Physical Exam
-
Vital Signs:
Vital Signs
Temp Pulse Resp BP Pulse Ox
97.8 F 84 18 141/114 96
06/23/24 07:05 06/23/24 06:01 06/23/24 06:01 06/23/24 06:01 06/22/24 14:27
Cardiovascular:: Regular rate and rhythm
Respiratory:: Bilateral: CTA
Lung Excursion:: Normal
Abdomen:: Nontender and Soft
Bowel Sounds:: Normal
Extremity Edema:: None: Bilateral:
--- NOTE | 2024-06-23 11:54 | W.PN.GI.CBS2 ---
Today's Communication / Plan
-
N.p.o. after midnight
EGD tomorrow
Assessment / Plan
-
63-year-old male with history of CVA on aspirin/ Plavix, history of GI bleed unclear etiology (?ulcer) at [facility] several months ago currently off PPI, hx CAD s/p PCI (07/2023), alcohol abuse, seizure disorder presenting from rehab
with hypotension and lightheadedness, in the ER he was noted to have hemoglobin of 4.6 with iron deficiency indices, heme positive stool and GI consult was called in. He was also noted to be hyponatremic. Plavix on hold, ASA resumed yesterday.
#Anemia
#Melena
#Maroon-colored stool
#Family history of CRC
#Hyponatremia-required hypertonic saline during this admission
Plan:
-ASA resumed, Plavix on hold, awaiting washout. Initially, had planned for just EGD, but given color of stool 06/19 that was brown/maroon without prior colonoscopy and significant family history, would recommend EGD and Colonoscopy, as long as
sodium >130. Sodium today 136.
I discussed with patient again about EGD/colonoscopy (with bowel prep). Patient would like to have a EGD tomorrow and decide on colonoscopy later
-N.p.o. after midnight.
Total Time Spent with Patient (in minutes): 35
Subjective
Subjective
Date of Service: June 23, 2024
Denies any GI bleeding. Tolerating liquid diet
Objective
Data Reviewed
Laboratory Data:
Laboratory Results
06/23/24 09:18
06/23/24 09:18
Laboratory Results
PT 16.2 Sec (11.4-14.6) H 06/19/24 04:10
INR 1.27 06/19/24 04:10
Magnesium 1.8 mg/dl (1.6-2.3) 06/19/24 04:10
Total Bilirubin 0.3 mg/dl (0.2-1.3) 06/17/24 14:50
AST 42 U/L (17-59) 06/17/24 14:50
ALT 38 U/L (0-50) 06/17/24 14:50
Alkaline Phosphatase 90 U/L (38-126) 06/17/24 14:50
Vital Signs and I&O:
Vital Signs
Temp Pulse Resp BP Pulse Ox
97.8 F 84 18 141/114 96
06/23/24 07:05 06/23/24 06:01 06/23/24 06:01 06/23/24 06:01 06/22/24 14:27
I&O
06/22/24 06/23/24 06/24/24
06:59 06:59 06:59
Intake Total 600 / 600 1100 / 1100 480 / 480
Output Total 215 / 215 2000 / 2000 200 / 200
Balance 385 / 385 -900 / -900 280 / 280
Physical Exam
Physical Exam
GI: Soft, Non Distended and Non Tender
[2024-06-23] MEDS: NORVASC 5 MG PO (12:44)
[2024-06-23] MEDS: FERRLECIT 110 MG IV (14:54)
[2024-06-23] MEDS: LIPITOR 40 MG PO (22:01)
[2024-06-24] VITALS (18 sets, daily range): BP systolic 109–139; BP diastolic 60–108; PULSE 78; BMI 15.8
--- NOTE | 2024-06-24 04:11 | PTCARENOTE ---
Pt appearing to be withdrawn and upset. Pt stating he does ' not want to be here' he wants to 'go home'. Emotional support given. Education attempted. Pt NPO since midnight for EDG in morning. Call floyd within reach. Assessment care and vitals as
charted.
[2024-06-24 05:51] LABS: Hematocrit 26.3 % (39.0-52.0); Hemoglobin 8.4 g/dL (13.0-18.0); Mean Corp Hgb Conc. 31.9 g/dL (33.0-37.0); Mean Corpuscular Hgb 30.8 pg (27.0-31.0); Mean Corpuscular Volume 96.3 fL (80.0-94.0); Mean Platelet Volume 9.6 fL (7.4-10.4); Platelet Count 418 10^3/uL (130-400); Red Blood Cell Count 2.73 10^6/uL (4.70-6.10); Red Cell Dist. Width 17.1 % (11.5-14.5)
[2024-06-24 06:17] LABS: Blood Urea Nitrogen 8 mg/dl (9-20); Calcium 7.7 mg/dl (8.4-10.2); Carbon Dioxide 28 mmol/L (22-30); Chloride 99 mmol/L (98-107); Estimated Creatinine Clearance 82 ml/min; Glucose 76 mg/dl (70-99); Magnesium 1.7 mg/dl (1.6-2.3); Sodium 130 mmol/L (135-145); eGFR > 60.00
[2024-06-24 06:22] LABS: Potassium 3.7 mmol/L (3.5-5.1)
[2024-06-24] MEDS: PROTONIX IV 40 MG IV (08:24)
[2024-06-24] MEDS: NSS (PRESERVATIVE FREE) 10 ML IV (08:25)
--- NOTE | 2024-06-24 08:35 | PTCARENOTE ---
Assumed care of patient this AM. NPO overnight for EGD. VS stable, afebrile. Patient now off unit to GI lab for EGD.
--- NOTE | 2024-06-24 09:27 | W.PN.NEPH.PH ---
Today's Communication / Plan
-
Follow sodium
Blood pressure controlled on amlodipine
Will provide Samsca as needed
Maintain salt tablets and fluid restriction
Assessment/Plan
-
IMP:
Melena
Acute Blood Loss Anemia
Hyponatremia
CAD with Hx PCI
Recent CVA
Seizures
Essential HTN
ETOH abuse
CHF?
GERD
COPD
hyperlipidemia
anxiety
Plan:
Sodium down to 130 from 136
follow BMP
continue NaCl tabs
FR 48oz still
amlodipine continued for hypertension
Will repeat Samsca as needed
-
-
Date of Service: June 24, 2024
CC / HPI / ROS
-
Chief Complaint:
hyponatremia
History of Present Illness:
Sodium down to to 130 on fluid restriction and salt tablet, last dose of Samsca was provided on Monday
BP stable
K stable
Review of Systems:
no cp or sob
no pain
no n/v
Labs
-
Labs:
WBC 6.0 10^3/uL (4.8-10.8) 06/24/24 05:06
RBC 2.73 10^6/uL (4.70-6.10) L 06/24/24 05:06
Hgb 8.4 g/dL (13.0-18.0) L 06/24/24 05:06
Hct 26.3 % (39.0-52.0) L 06/24/24 05:06
Plt Count 418 10^3/uL (130-400) H 06/24/24 05:06
Sodium 130 mmol/L (135-145) L 06/24/24 05:06
Potassium 3.7 mmol/L (3.5-5.1) 06/24/24 05:06
Chloride 99 mmol/L (98-107) 06/24/24 05:06
Carbon Dioxide 28 mmol/L (22-30) 06/24/24 05:06
BUN 8 mg/dl (9-20) L 06/24/24 05:06
Creatinine 0.7 mg/dL (0.7-1.3) 06/24/24 05:06
eGFR > 60.00 06/24/24 05:06
Glucose 76 mg/dl (70-99) 06/24/24 05:06
Calcium 7.7 mg/dl (8.4-10.2) L 06/24/24 05:06
Albumin 2.5 g/dl (3.5-5.0) L 06/17/24 14:50
Physical Exam
-
Vital Signs:
Vital Signs
Temp Pulse Resp BP Pulse Ox
98.1 F 53 17 118/78 96
06/24/24 07:15 06/24/24 08:00 06/24/24 08:00 06/24/24 08:00 06/23/24 20:40
Cardiovascular:: Regular rate and rhythm
Respiratory:: Bilateral: CTA
Lung Excursion:: Normal
Abdomen:: Nontender and Soft
Bowel Sounds:: Normal
Extremity Edema:: None: Bilateral:
--- NOTE | 2024-06-24 09:27 | W.PN.HOSP.TC ---
Today's Communication/Plan
-
Stable for tele
Assessment / Plan
Assessment / Plan
Mr. Tay Zamudio is a 63 yo man with hx CVA on Asa/Plavix, recent admission to [place] for seizures and GIB (per patient, requested records) [facility] with light[facility]ness and low blood pressure with exertion.
Melena
Duodenal ulcers
Acute Blood Loss Anemia
-Status post 3 units packed red blood cells, hemoglobin now stable at 8.4, was as low as 6.5
-Resumed aspirin on 06/18
-GI consult appreciated, 06/24 EGD shows nonbleeding duodenal ulcers
-GI recommends PPI twice daily until repeat EGD in 8 weeks
-Cleared by GI to resume Plavix, avoid NSAIDs
-Trend hemoglobin
Hyponatremia
SIADH
-required hypertonic saline overnight of admission as Na decreased to 120 post blood and IVF; and repeat hypertonic saline on 06/18
-Nephrology consult appreciated
-s/p SAMSCA on 06/22
-continue salt tabs, trend Na
CAD with Hx PCI
-PCI was July 2023 - confirmed with daughter
-aspirin resumed
-resume Plavix 06/25
Hypokalemia
-replete prn
Underweight
-appreciate dietary
Recent CVA
-aspirin, resume Plavix
-CO TEACHER statin
Seizures
-CO TEACHER Lacosamide
Essential HTN
-patient was hypotensive on arrival, now resolved
-resumed Amlodipine 06/23
DVT prophylaxis�SCDs
Full code
Total time spent to see the patient on the floor, examine the patient, review data and lab results, discuss treatment plan with patient, nursing staff around 42 minutes.
Physical Exam
General: No acute distress
HEENT: Normocephalic, Atraumatic, EOMI, MMM
Respiratory: Clear to Auscultation bilaterally
Cardiac: Normal S1/S2, Regular Rate and Rhythm
GI: Soft, Nontender, Nondistended, Normal Bowel Sounds
Extremities: No Clubbing, Cyanosis, or Edema
Neuro: Nonfocal/Grossly Intact
Psych: Calm, Cooperative
Derm: No Visible lesions
Anticipated Discharge: Within 24 hours
Subjective/Interval History
-
Date of Service: June 24, 2024
No black stools. No hematemesis. No abdominal pain. No fever, no vomiting.
Objective Data
-
Labs:
Laboratory Results
06/24/24
05:06
WBC 6.0
Hgb 8.4 L
Hct 26.3 L
Plt Count 418 H
Sodium 130 L
Potassium 3.7
Chloride 99
Carbon Dioxide 28
BUN 8 L
Creatinine 0.7
Glucose 76
Calcium 7.7 L
Vital Signs:
Vital Signs
Temp Pulse Resp BP Pulse Ox
98.1 F 53 17 118/78 96
06/24/24 07:15 06/24/24 08:00 06/24/24 08:00 06/24/24 08:00 06/23/24 20:40
I&O
06/23/24 06/24/24 06/25/24
06:59 06:59 06:59
Intake Total 1100 / 1100 510 / 510
Output Total 1999 / 1999 725 / 725
Balance -900 / -900 -215 / -215
--- NOTE | 2024-06-24 10:07 | PTCARENOTE ---
Patient back from EGD. Patient awake and alert. VS stable. SB on monitor, HR 55,115/64 11, 95% RA. Started on a regular diet. Will continue to monitor.
[2024-06-24] MEDS: VIMPAT 200 MG PO ×2 (10:19→21:36)
[2024-06-24] MEDS: SODIUM CHLORIDE 1 GRAM PO ×2 (10:19→21:38)
[2024-06-24] MEDS: NORVASC 5 MG PO (10:19)
[2024-06-24] MEDS: FOLVITE 1 MG PO (10:19)
[2024-06-24] MEDS: LOW STRENGTH ASPIRIN 81 MG PO (10:19)
[2024-06-24] MEDS: VITAMIN B1 100 MG PO (10:19)
--- NOTE | 2024-06-24 14:07 | CM ---
CM reviewed chart- pt remains in IMU and plan for EGD tpday
Update sent to [facility] via [facility]
Discharge Disposition- plan for to [facility] for continued LTC
--- NOTE | 2024-06-24 14:11 | PTCARENOTE ---
Patient out of bed chair. Tolerating regular diet. Denies any pain or discomfort.
[2024-06-24] MEDS: FERRLECIT 110 MG IV (14:12)
[2024-06-24] MEDS: FLUSH (NSS) 1 FLUSH IV (14:12)
--- NOTE | 2024-06-24 17:01 | PTCARENOTE ---
Report given to Kailee CHANCE. Patient to be transferred to 4th floor room 407 bed 2 by transport.
--- NOTE | 2024-06-24 18:14 | PTCARENOTE ---
Received pt from IMU via stretcher, accompanied by IMU staff. Pt AAO x3, PONCE; able to transfer to bed with assistance; weak. Fall prec initiated. Placed on telemetry:NSR. On room air- pulse ox 96%, no SOB noted. Abd soft, rounded, to be on
regular diet. Urinal at bedside. Oriented to 4East, no c/o at present. Will continue to monitor.
[2024-06-24] MEDS: LIPITOR 40 MG PO (21:35)
[2024-06-24] MEDS: PROTONIX 40 MG PO (21:38)
[2024-06-25 00:29] VITALS: BP 121/84
[2024-06-25 03:51] VITALS: BP 146/77
[2024-06-25 06:33] LABS: Hematocrit 26.3 % (39.0-52.0); Hemoglobin 8.5 g/dL (13.0-18.0); Mean Corp Hgb Conc. 32.3 g/dL (33.0-37.0); Mean Corpuscular Hgb 31.3 pg (27.0-31.0); Mean Corpuscular Volume 96.7 fL (80.0-94.0); Mean Platelet Volume 9.4 fL (7.4-10.4); Platelet Count 383 10^3/uL (130-400); Red Blood Cell Count 2.72 10^6/uL (4.70-6.10); Red Cell Dist. Width 16.5 % (11.5-14.5); White Blood Cell Count 6.3 10^3/uL (4.8-10.8)
[2024-06-25 06:58] LABS: Blood Urea Nitrogen 11 mg/dl (9-20); Calcium 7.6 mg/dl (8.4-10.2); Carbon Dioxide 29 mmol/L (22-30); Chloride 100 mmol/L (98-107); Estimated Creatinine Clearance 83 ml/min; Glucose 78 mg/dl (70-99); Potassium 3.9 mmol/L (3.5-5.1); Sodium 129 mmol/L (135-145); eGFR > 60.00
[2024-06-25 08:14] VITALS: BP 141/72
[2024-06-25] MEDS: VIMPAT 200 MG PO (09:42)
[2024-06-25] MEDS: VITAMIN B1 100 MG PO (09:42)
[2024-06-25] MEDS: LOW STRENGTH ASPIRIN 81 MG PO (09:42)
[2024-06-25] MEDS: NORVASC 5 MG PO (09:43)
[2024-06-25] MEDS: PROTONIX 40 MG PO (09:43)
[2024-06-25] MEDS: SODIUM CHLORIDE 1 GRAM PO (09:43)
[2024-06-25] MEDS: FOLVITE 1 MG PO (09:43)
[2024-06-25] MEDS: PLAVIX 75 MG PO (09:43)
[2024-06-25 11:00] VITALS: BP 112/72
--- NOTE | 2024-06-25 11:11 | W.PN.NEPH.PH ---
Today's Communication / Plan
-
Continue fluid restriction
Assessment/Plan
-
IMP:
Melena
Acute Blood Loss Anemia
Hyponatremia
CAD with Hx PCI
Recent CVA
Seizures
Essential HTN
ETOH abuse
CHF?
GERD
COPD
hyperlipidemia
anxiety
Plan:
Sodium labile currently 129 down from 130
Responded well to tolvaptan and went up to 136
follow BMP
continue NaCl tabs
FR 48oz still
amlodipine continued for hypertension
Will repeat Samsca as needed
-
-
Date of Service: June 25, 2024
CC / HPI / ROS
-
Chief Complaint:
hyponatremia
History of Present Illness:
Hyponatremia labile stable at 129 currently
BP stable
K stable
Review of Systems:
no cp or sob
no pain
no n/v
Labs
-
Labs:
WBC 6.3 10^3/uL (4.8-10.8) 06/25/24 06:15
RBC 2.72 10^6/uL (4.70-6.10) L 06/25/24 06:15
Hgb 8.5 g/dL (13.0-18.0) L 06/25/24 06:15
Hct 26.3 % (39.0-52.0) L 06/25/24 06:15
Plt Count 383 10^3/uL (130-400) 06/25/24 06:15
Sodium 129 mmol/L (135-145) L 06/25/24 06:15
Potassium 3.9 mmol/L (3.5-5.1) 06/25/24 06:15
Chloride 100 mmol/L (98-107) 06/25/24 06:15
Carbon Dioxide 29 mmol/L (22-30) 06/25/24 06:15
BUN 11 mg/dl (9-20) 06/25/24 06:15
Creatinine 0.7 mg/dL (0.7-1.3) 06/25/24 06:15
eGFR > 60.00 06/25/24 06:15
Glucose 78 mg/dl (70-99) 06/25/24 06:15
Calcium 7.6 mg/dl (8.4-10.2) L 06/25/24 06:15
Albumin 2.5 g/dl (3.5-5.0) L 06/17/24 14:50
Physical Exam
-
Vital Signs:
Vital Signs
Temp Pulse Resp BP Pulse Ox
97.9 F 71 18 141/72 99
06/25/24 08:14 06/25/24 09:43 06/25/24 08:14 06/25/24 09:43 06/25/24 08:14
Cardiovascular:: Regular rate and rhythm
Respiratory:: Bilateral: CTA
Lung Excursion:: Normal
Abdomen:: Nontender and Soft
Bowel Sounds:: Normal
Extremity Edema:: None: Bilateral:
--- NOTE | 2024-06-25 12:45 | W.PN.HOSP.TC ---
Today's Communication/Plan
-
Discharge today
Assessment / Plan
Assessment / Plan
Mr. Tay Zamudio is a 63 yo man with hx CVA on Asa/Plavix, recent admission to [place] for seizures and GIB (per patient, requested records) [facility] and low blood pressure with exertion.
Melena
Duodenal ulcers
Acute Blood Loss Anemia
-Status post 3 units packed red blood cells, hemoglobin now stable at 8.5, was 8.4, was as low as 6.5
-Resumed aspirin on 06/18
-GI consult appreciated, 06/24 EGD shows nonbleeding duodenal ulcers
-GI recommends PPI twice daily until repeat EGD in 8 weeks
-Cleared by GI to resume Plavix, avoid NSAIDs
-Hemoglobin stable at 8.5 today, was 8.4 yesterday
-Medically stable for discharge, follow-up with PCP in 1 week, GI in 6 weeks
Hyponatremia
SIADH
-required hypertonic saline overnight of admission as Na decreased to 120 post blood and IVF; and repeat hypertonic saline on 06/18
-Nephrology consult appreciated
-s/p SAMSCA on 06/22
-Sodium 129 today
-Cleared by nephrology for discharge on sodium chloride tablets, fluid restriction
-Needs repeat BMP on 07/01/2024, prescription provided
CAD with Hx PCI
-PCI was July 2023 - confirmed with daughter
-aspirin resumed
-resumed Plavix 06/25
Hypokalemia
-repleted and resolved
Underweight
-appreciate dietary
Recent CVA
-aspirin, resumed Plavix
-UROLOGY SURGEON statin
Seizures
-UROLOGY SURGEON Lacosamide
Essential HTN
-patient was hypotensive on arrival, now resolved
-resumed Amlodipine 06/23
DVT prophylaxis�SCDs
Full code
Physical Exam
General: No acute distress
HEENT: Normocephalic, Atraumatic, EOMI, MMM
Respiratory: Clear to Auscultation bilaterally
Cardiac: Normal S1/S2, Regular Rate and Rhythm
GI: Soft, Nontender, Nondistended, Normal Bowel Sounds
Extremities: No Clubbing, Cyanosis, or Edema
Neuro: Nonfocal/Grossly Intact
Psych: Calm, Cooperative
Derm: No Visible lesions
Anticipated Discharge: Today
Subjective/Interval History
-
Date of Service: June 25, 2024
Denies abdominal pain. No nausea, no vomiting. Reports dark stools. No fever. No chest pain, no shortness of breath.
Objective Data
-
Labs:
Laboratory Results
06/25/24
06:15
WBC 6.3
Hgb 8.5 L
Hct 26.3 L
Plt Count 383
Sodium 129 L
Potassium 3.9
Chloride 100
Carbon Dioxide 29
BUN 11
Creatinine 0.7
Glucose 78
Calcium 7.6 L
Vital Signs:
Vital Signs
Temp Pulse Resp BP Pulse Ox
97.4 F 68 16 112/72 99
06/25/24 11:00 06/25/24 11:00 06/25/24 11:00 06/25/24 11:00 06/25/24 11:00
I&O
06/24/24 06/25/24 06/26/24
06:59 06:59 06:59
Intake Total 510 / 510 785 / 785
Output Total 725 / 725 100 / 100
Balance -215 / -215 685 / 685
--- NOTE | 2024-06-25 12:45 | W.DCSUMMARY ---
Discharge Summary
Discharge Data
Date of Admission: 06/17/24
Date of Discharge: 06/25/24
-
Pending Results: No
Hospital Course
Discharge diagnosis:
Melena
Duodenal ulcers
Acute blood loss anemia
Profound hyponatremia
Syndrome of inappropriate antidiuretic hormone secretion
Coronary artery disease status post stent
Hypokalemia
Underweight
History of seizures
History of stroke
Essential hypertension
Consults: Nephrology, GI
Procedures:
06/24/24 EGD: - Small hiatal hernia.
- Congestive gastropathy. Biopsied.
- Non-bleeding duodenal ulcers with a clean ulcer base
(Kiko Class III). Biopsied.
Hospital course:
63-year-old male with a past medical history of CAD status post stent placement, seizures, stroke, and hypertension was admitted for melena and severe hyponatremia. Patient sodium was 121 upon admission, and dropped as low as 120. He was seen in
conjunction with nephrology, and found to have SIADH. He was treated with hypertonic saline, Samsca, fluid restriction, and sodium chloride tablets.
Patient was treated with IV Protonix. He was transfused a total of 3 units of packed red blood cells. His hemoglobin was as low as 6.5. It improved to 8.4, and remained stable at 8.5 on the day of discharge.
Patient was seen in conjunction with GI, and had an endoscopy that showed congestive gastropathy and nonbleeding duodenal ulcers. GI recommends pantoprazole 40 mg twice a day for 8 weeks, then he will need a repeat endoscopy to ensure healing.
Patient's sodium was 129 on the day of discharge. He has been cleared by nephrology to be discharged on a fluid restriction and sodium chloride tablets. He needs to get a repeat BMP on 07/01/24, prescription slip was provided.
Patient is medically stable for discharge. He needs to follow-up with his primary care doctor in 1 week, as well as gastroenterology in the office in 6 weeks for repeat endoscopy in 8 weeks.
Disposition: Home self-care
Discharge planning: Required 49 minutes
Discharge Plan
-
Patient Disposition: Home (Routine Discharge)
Discharge Diagnosis/Procedures: Acute blood loss anemia, duodenal ulcer with probable bleeding, severe hyponatremia/low sodium
Condition: Good
Diet: Restrict fluids to 48 oz
Activity: As tolerated
Driving Restrictions: As prior to admission
Blood Work: Script given for BMP on 07/01/24
Activity Restrictions/Additional Instructions:
You have low sodium. It is very important you adhere to your fluid restriction or your sodium will get lower.
You need repeat blood work on 07/01/2024 to check your sodium.
Please avoid all [id number] NSAID medications such as ibuprofen, naproxen, Aleve, Motrin, Advil.
These medications will cause your ulcer to bleed.
Recommend you eating beef, muscles, clams, and other foods high in iron so you can make more blood.
You need a repeat endoscopy with the GI doctor in 8 weeks, follow-up with GI in the office in 6 weeks.
Follow-up with your primary care doctor in 1 week.
Referrals:
Cody Lopez MD [Family Provider] - in one week
Kathryn Zhang MD [Active] - in six weeks
Prescriptions:
New
pantoprazole 40 mg Tablet,Delayed Release (Dr/Ec)
40 mg PO BID Qty: 60 0RF
sodium chloride 1,000 mg Tablet,Soluble
1,000 mg PO BID Qty: 60 0RF
Continued
atorvastatin 40 mg Tablet
40 mg PO HS
acetaminophen [Tylenol] 325 mg Tablet
650 mg PO Q4HPRN PRN (Reason: mild pain/fever)
ondansetron HCl 4 mg Tablet
4 mg PO Q8HPRN PRN (Reason: nausea)
thiamine HCl (vitamin B1) 100 mg Tablet
100 mg PO DAILY
clopidogrel 75 mg Tablet
75 mg PO DAILY
amlodipine 5 mg Tablet
5 mg PO DAILY
Rx Instructions:
hold if SBP<100
magnesium hydroxide [Milk of Magnesia] 400 mg/5 mL Suspension
30 ml PO [id number] PRN (Reason: no bm for 3 days)
bisacodyl [Dulcolax (bisacodyl)] 10 mg Suppository
10 mg MO DAILYPRN PRN (Reason: if mom ineffective after 24 hours)
Fleet Enema 19-7 gram/118 mL Enema
118 ml MO DAILYPRN PRN (Reason: if bisacodyl ineffective after 24 hours)
aspirin 81 mg Tablet,Chewable
81 mg PO DAILY
folic acid 1 mg Tablet
1 mg PO DAILY
lorazepam 1 mg Tablet
1 mg PO Q8HPRN PRN (Reason: seizures)
lacosamide 200 mg Tablet
200 mg PO BID
Discontinued
oseltamivir [Tamiflu] 75 mg Capsule
75 mg PO HS
Patient Comments:
06/17/24: to take for 14 days, starting 06/14/24
Discharge Orders:
Discharge Patient (As Directed); Ordered 06/25/24
Ordered By: Wilbur Brooks
Discharge Date and Time
Discharge Date/Time: 06/25/24 15:23
Print Language: ROMANSH
--- NOTE | 2024-06-25 13:30 | CM ---
Addendum entered by Mikaela Hermosillo 06/25/24 15:32:
[facility]
Addendum entered by Mikaela Hermosillo 06/25/24 14:59:
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
Original Note:
Tay is ready for discharge today and he would like to return to his daughter's home.
CM contacted pt's daughter, Lorena, and spoke with her about discharge. Lorena's home is not set up in a manner where Tay could live safely, so plan is for Tay to return to [facility]. Lorena is hoping that he can be moved to another facility
closer to where she lives, but has not yet discussed this with [facility].
ALEJA spoke with Bisi at [facility] and requested transport back to [facility] via their van. [facility] w/c van is not available today. Bisi spoke with her Gear Lapping Machine Operator who advised her that the company used by for transport will
send a bill to [facility] and they would pay the cost.
Plan: to coordinate transport via w/c van for today via [facility].
[2024-06-25 14:56] VITALS: BP 125/73
== END 2024-06-25 15:23 | DRG 811 ==
LOC: 4 EAST ACU 18:45
PROVIDERS: Internal Medicine Gastroenterology; Nurse Practitioner Adult Health; Physician Assistant; Registered Nurse; Specialist; ADMITTING PHYSICIAN Student in an Organized Health Care Education/Training Program; ATTENDING PHYSICIAN Family Medicine; CONSULT PHYSICIAN Internal Medicine; CONSULT PHYSICIAN Internal Medicine Gastroenterology; EMERGENCY PHYSICIAN Emergency Medicine; FAMILY PHYSICIAN Internal Medicine
PROC: 30233N1 Transfusion of Nonautologous Red Blood Cells into Peripheral Vein, Percutaneous Approach (ICD-10-PCS; 2024-06-17)
PROC: 0DB98ZX Excision of Duodenum, Via Natural or Artificial Opening Endoscopic, Diagnostic (ICD-10-PCS; 2024-06-24)
PROC: 0DB68ZX Excision of Stomach, Via Natural or Artificial Opening Endoscopic, Diagnostic (ICD-10-PCS; 2024-06-24)
DX: D62 Acute posthemorrhagic anemia (principal); K26.4 Chronic or unspecified duodenal ulcer with hemorrhage; E22.2 Syndrome of inappropriate secretion of antidiuretic hormone; D68.32 Hemorrhagic disorder due to extrinsic circulating anticoagulants; Z68.1 Body mass index [BMI] 19.9 or less, adult; E78.00 Pure hypercholesterolemia, unspecified; E87.6 Hypokalemia; E88.09 Other disorders of plasma-protein metabolism, not elsewhere classified; G40.909 Epilepsy, unspecified, not intractable, without status epilepticus; J44.9 Chronic obstructive pulmonary disease, unspecified; T45.525A Adverse effect of antithrombotic drugs, initial encounter; R63.6 Underweight; K44.9 Diaphragmatic hernia without obstruction or gangrene; I10 Essential (primary) hypertension; I25.10 Atherosclerotic heart disease of native coronary artery without angina pectoris; K21.9 Gastro-esophageal reflux disease without esophagitis; K31.89 Other diseases of stomach and duodenum; F41.9 Anxiety disorder, unspecified; F17.210 Nicotine dependence, cigarettes, uncomplicated; Z79.82 Long term (current) use of aspirin; Z79.02 Long term (current) use of antithrombotics/antiplatelets; Z79.899 Other long term (current) drug therapy; Z86.73 Personal history of transient ischemic attack (TIA), and cerebral infarction without residual deficits; Z95.5 Presence of coronary angioplasty implant and graft
CPT/HCPCS: 88305; 36430; 76700; 80048; 80053; 82077; 82533; 82570; 82607; 82728; 82746; 83540; 83550; 83735; 83930; 83935; 84156; 84295; 84300; 84443; 85014; 85018; 85025; 85027; 85610; 86850; 86900; 86901; 86920; 87070; 88342; 93005; 96361; 96365; 97116; 97163; 97167; 97530; 99291; J2916; P9016

== ENCOUNTER 2024-07-29 13:10 | Emergency (ER) | payer MEDICARE, SELFPAY ==
[2024-07-29 13:16] VITALS: BP 122/74
--- NOTE | 2024-07-29 13:52 | ED.GENMED ---
History of Present Illness
General
Chief Complaint: Seizure
Source: patient
Exam Limitations: none
Time Seen by Provider: 07/29/24 13:46
History of Present Illness
History of Present Illness:
Patient describing 2 episodes of brief left arm twitching in the last 2 hours. Describes them as his seizures. States he gets them usually about every few weeks. Does not usually present to the ER. However since he told the nurse and they talk
to the doctor they recommended ED evaluation. Patient denies complaints now. Faithful with medication. No recent medication adjustments. Denies headache chest pain shortness of breath abdominal pain syncope or other complaints.
Past History
Past History
ED Past Medical History: CHF, CVA, HTN, Hypercholesterolemia, Seizures and Other (GERD/GI bleed/hep C)
ED Past Surgical History: Cardiac (Cardiac stents)
Review of Systems
Review of Systems
All Other Systems: Not applicable
Respiratory: Reports no symptoms
Cardiac: Reports no symptoms
ABD/GI: Reports no symptoms
Neurological: Denies dizzy, headache, weakness or numbness
Phy Exam
Physical Exam
Physical Exam:
GENERAL: Alert and oriented in no apparent distress
EYE: Orbits normal.
NECK: Supple, nontender. Poor dentition significant adenopathy.
ENT: Pharynx without erythema
CARDIAC: Regular rate and rhythm without any obvious murmurs.
LUNGS: Clear breath sounds,normal
ABDOMEN: Soft, without focal tenderness or distention
NEUROLOGICAL: Alert and oriented , grossly non-focal. Cranial nerves II through XII intact. Speech normal. Light touch intact.
SKIN: Warm and dry, no rash or lesion, no discoloration, skin intact.
MUSCULOSKELETAL: No edema,no deformity.Good color
PSYCH: Normal and appropriate interaction.
Course
Orders/Labs/Results
Orders:
Orders
07/29/24 13:45
Complete Blood Count/With Diff Urgent
Comprehensive Metabolic Panel Urgent
07/29/24 13:52
Electrocardiogram (*1) Stat
Reason for Study: Other
Other Reason for Exam: neuro symptoms
CT Head W/o Iv Contrast Urgent
Comment:
Reason For Exam: Focal left arm seizure. History of seizures
Cardiac Monitoring- Treatment ONCE
EKG- Treatment ONCE
IV Insert/Care/Rem.- Treatment PRN
Abnormal Lab Results
07/29/24
13:45
RBC 3.09 L 10^6/uL
(4.70-6.10)
Hgb 9.7 L g/dL
(13.0-18.0)
Hct 29.7 L %
(39.0-52.0)
MCV 96.1 H fL
(80.0-94.0)
MCH 31.4 H pg
(27.0-31.0)
MCHC 32.7 L g/dL
(33.0-37.0)
RDW 16.5 H %
(11.5-14.5)
Plt Count 427 H 10^3/uL
(130-400)
Absolute Monos (auto) 0.7 H 10^3/uL
(0.1-0.6)
Monocytes % 11.6 H %
(1.7-9.3)
Sodium 130 L mmol/L
(135-145)
Chloride 96 L mmol/L
(98-107)
Carbon Dioxide 32 H mmol/L
(22-30)
Creatinine 0.6 L mg/dL
(0.7-1.3)
Calcium 7.8 L mg/dl
(8.4-10.2)
AST 74 H U/L
(17-59)
ALT 65 H U/L
(0-50)
Total Protein 5.5 L g/dl
(6.3-8.2)
Albumin 2.5 L g/dl
(3.5-5.0)
07/29/24 13:45
07/29/24 13:45
Vital Signs
Initial and Last Documented VS:
Initial Vital Signs
Temp Pulse Resp BP Pulse Ox
98.4 F 67 16 122/74 98
07/29/24 13:16 07/29/24 13:16 07/29/24 13:16 07/29/24 13:16 07/29/24 13:16
Last Documented Vital Signs
Temp Pulse Resp BP Pulse Ox
98.4 F 56 18 124/84 97
07/29/24 13:16 07/29/24 16:03 07/29/24 16:03 07/29/24 16:03 07/29/24 16:03
MDM/Problems Addressed
Differential Diagnosis Includes:
Patient self describing to brief focal seizure to the left arm. No LOC with these. He states this is his normal seizure which she gets every few weeks. With a history of hyponatremia we will check his electrolytes. EKG. Reviewing his previous
records he has not had a CT of the head. For completeness and the fact that this was focal he will get a head CT.
*Radiology
Radiology exam reviewed: radiology read reviewed (No acute findings)
*EKG
Interpreted by ED Provider?: Yes
Interpretation: normal
Comparison EKG: no changes
Heart Rate: 61
Rate: normal
Rhythm: sinus
[place]: normal axis
Interval: normal interval
QRS Pattern: normal QRS
Ischemia: no ischemia
*[employer] Consultant Interpretation
Rate: normal
Interpretation: normal
Heart Rate: 74
Rhythm: sinus
*Critical Care Note
Total Time (30-74mins, 75-104mins- exclusive of procedures): Not Applicable
Data Reviewed
Review of Other/Old Records Reveals: Labs, Records and Testing
Update Note
Update Note:
Patient is remained stable and nontoxic. Discharged to follow-up
ED Attending Note
-
Portions of this chart may have been created with voice recognition software.� Occasional wrong word or��sound alike� substitutions may have occurred due to the inherent limitations of voice recognition software.
Discharge Plan
Departure
Patient Disposition: Home (Routine Discharge)
Date of Disposition: 07/29/24
Time of Disposition: 16:31
Patient with high blood pressure during this ER visit?: Yes
Discharge Problem:
Focal seizure x 2, Chronic anemia, Mild LFT elevation
Instructions: Seizures, Adult (DC), BLOOD PRESSURE
Prescriptions:
No Action
atorvastatin 40 mg Tablet
40 mg PO HS
acetaminophen [Tylenol] 325 mg Tablet
650 mg PO Q4HPRN PRN (Reason: mild pain/fever)
ondansetron HCl 4 mg Tablet
4 mg PO Q8HPRN PRN (Reason: nausea)
thiamine HCl (vitamin B1) 100 mg Tablet
100 mg PO DAILY
clopidogrel 75 mg Tablet
75 mg PO DAILY
amlodipine 5 mg Tablet
5 mg PO DAILY
Rx Instructions:
hold if SBP<100
magnesium hydroxide [Milk of Magnesia] 400 mg/5 mL Suspension
30 ml PO [id number] PRN (Reason: no bm for 3 days)
bisacodyl [Dulcolax (bisacodyl)] 10 mg Suppository
10 mg ID DAILYPRN PRN (Reason: if mom ineffective after 24 hours)
Fleet Enema 19-7 gram/118 mL Enema
118 ml ID DAILYPRN PRN (Reason: if bisacodyl ineffective after 24 hours)
aspirin 81 mg Tablet,Chewable
81 mg PO DAILY
folic acid 1 mg Tablet
1 mg PO DAILY
lorazepam 1 mg Tablet
1 mg PO Q8HPRN PRN (Reason: seizures)
lacosamide 200 mg Tablet
200 mg PO BID
pantoprazole 40 mg Tablet,Delayed Release (Dr/Ec)
40 mg PO BID Qty: 60 0RF
sodium chloride 1,000 mg Tablet,Soluble
1,000 mg PO BID Qty: 60 0RF
Referrals:
Cody Lopez MD [Family Provider] - Follow up in 2-3 days
Activity Restrictions/Additional Instructions:
Call your neurologist for close follow-up
Interventions
Interventions:
*Risk Screen - Suicide Last Done: 07/29/24 13:18
*General Assessment Last Done: 07/29/24 13:18
*Neglect/Abuse Screening Last Done: 07/29/24 13:18
*ED COVID-19 Vaccine History Last Done: 07/29/24 13:18
ED- Cardiac Assessment Last Done: 07/29/24 13:19
ED- Neurological Assessment Last Done: 07/29/24 13:19
ED- Pulmonary Assessment Last Done: 07/29/24 13:19
Discharge Date and Time
Print Language: [id number]
[2024-07-29 13:59] LABS: % Basophils 1.8 % (0-2); % Eosinophils 1.3 % (0-6); % Immature Granulocytes 0.2 % (0-0.5); % Lymphocytes 22.1 % (20.5-51.1); % Monocytes 11.6 % (1.7-9.3); Absolute Basophils 0.1 10^3/uL (0-0.2); Absolute Eosinophils 0.1 10^3/uL (0-0.7); Absolute Lymphocytes 1.3 10^3/uL (1.2-3.4); Absolute Monocytes 0.7 10^3/uL (0.1-0.6); Absolute Neutrophils 3.8 10^3/uL (1.4-6.5); Hematocrit 29.7 % (39.0-52.0); Hemoglobin 9.7 g/dL (13.0-18.0); Mean Corp Hgb Conc. 32.7 g/dL (33.0-37.0); Mean Corpuscular Hgb 31.4 pg (27.0-31.0); Mean Corpuscular Volume 96.1 fL (80.0-94.0); Mean Platelet Volume 9.2 fL (7.4-10.4); Nucleated Red Blood Cells % 0 % (-); Platelet Count 427 10^3/uL (130-400); Red Blood Cell Count 3.09 10^6/uL (4.70-6.10); Red Cell Dist. Width 16.5 % (11.5-14.5); White Blood Cell Count 6.1 10^3/uL (4.8-10.8)
[2024-07-29 14:00] VITALS: BP 110/71
[2024-07-29 14:05] LABS: ALT (SGPT) 65 U/L (0-50); AST (SGOT) 74 U/L (17-59); Albumin 2.5 g/dl (3.5-5.0); Alkaline Phosphatase 98 U/L (38-126); Blood Urea Nitrogen 11 mg/dl (9-20); Calcium 7.8 mg/dl (8.4-10.2); Carbon Dioxide 32 mmol/L (22-30); Chloride 96 mmol/L (98-107); Glucose 97 mg/dl (70-99); Potassium 4.1 mmol/L (3.5-5.1); Sodium 130 mmol/L (135-145); Total Bilirubin 0.4 mg/dl (0.2-1.3); Total Protein 5.5 g/dl (6.3-8.2); eGFR > 60.00
[2024-07-29 15:00] VITALS: BP 128/78
[2024-07-29 16:03] VITALS: BP 124/84
[2024-07-29 17:00] VITALS: BP 121/75
[2024-07-29 18:01] VITALS: BP 154/89
== END 2024-07-29 18:47 | disposition home or self-care (01) ==
LOC: EMR 13:10
PROVIDERS: Student in an Organized Health Care Education/Training Program; EMERGENCY PHYSICIAN Emergency Medicine; FAMILY PHYSICIAN Internal Medicine
DX: G40.89 Other seizures (principal); D64.9 Anemia, unspecified; E78.00 Pure hypercholesterolemia, unspecified; I11.0 Hypertensive heart disease with heart failure; I50.9 Heart failure, unspecified; K21.9 Gastro-esophageal reflux disease without esophagitis; Z86.73 Personal history of transient ischemic attack (TIA), and cerebral infarction without residual deficits; Z95.5 Presence of coronary angioplasty implant and graft; Z86.19 Personal history of other infectious and parasitic diseases
CPT/HCPCS: 99284; 70450; 80053; 85025; 93005

== ENCOUNTER 2024-09-16 06:22 | Day surgery (SDC) | payer MEDICARE, MEDICAID, SELFPAY | END 2024-09-16 14:37 | disposition home or self-care (01) | LOC: GI 06:22 | PROVIDERS: ATTENDING PHYSICIAN Internal Medicine Gastroenterology | DX: K31.89 Other diseases of stomach and duodenum (principal); K26.0 Acute duodenal ulcer with hemorrhage; K26.9 Duodenal ulcer, unspecified as acute or chronic, without hemorrhage or perforation; K90.0 Celiac disease | CPT/HCPCS: 43239; 88305; 88342 ==

== ENCOUNTER 2024-09-17 06:33 | Day surgery (SDC) | payer MEDICARE, MEDICAID, SELFPAY | END 2024-09-17 14:55 | disposition home or self-care (01) | LOC: GI 06:33 | PROVIDERS: ATTENDING PHYSICIAN Student in an Organized Health Care Education/Training Program | DX: Z12.11 Encounter for screening for malignant neoplasm of colon (principal); K64.4 Residual hemorrhoidal skin tags; K57.30 Diverticulosis of large intestine without perforation or abscess without bleeding; K62.89 Other specified diseases of anus and rectum; D12.0 Benign neoplasm of cecum; D12.3 Benign neoplasm of transverse colon; D12.5 Benign neoplasm of sigmoid colon; D12.8 Benign neoplasm of rectum; Z80.0 Family history of malignant neoplasm of digestive organs | CPT/HCPCS: 45385; 88305 ==